=== PATIENT | male | born 1945 | race Caucasian/White ===

== ENCOUNTER 2020-03-26 17:26 | Inpatient (IN) | payer MEDICARE, OTHER ==
[~2020-03-26] VITALS: Ht 180.3 cm; Wt 121.6 kg
[~2020-03-26 17:26] MED LIST: AMLO10TA59 PO; ASPI81TA31 PO; ATOR80TA PO; CLON0.1T14 PO; DIGO125T PO; FURO-151 PO; Lisinopril PO; METO-358 PO; RIVA10TA PO
[2020-03-26] MEDS ORDERED: MAGN400O6 PO (17:51)
[2020-03-26] MEDS ORDERED: NA P133E RC (17:51)
[2020-03-26] MEDS ORDERED: SITA50TA PO (17:51)
[2020-03-26] MEDS ORDERED: OLAN2.5T3 PO (17:51)
[2020-03-26] MEDS ORDERED: RIFA550T PO (17:51)
[2020-03-26] MEDS ORDERED: CARV12.52 PO (17:51)
[2020-03-26] MEDS ORDERED: ACET-2154 PO (17:51)
[2020-03-26] MEDS ORDERED: BISA10SU12 RC (17:51)
[2020-03-26] MEDS ORDERED: FURO-152 PO (17:51)
[2020-03-26] MEDS ORDERED: LACT10SO3 PO (17:51)
[2020-03-26] MEDS ORDERED: SPIR25TA6 PO (17:51)
[2020-03-26] MEDS ORDERED: GLIP10TA11 PO (18:01)
[2020-03-26] MEDS ORDERED: ATOR80TA PO (18:01)
[2020-03-26] MEDS ORDERED: HYDROCORTISONE CREAM TP (18:01)
[2020-03-26] MEDS ORDERED: INSU100V39 SQ (18:01)
[2020-03-26] MEDS ORDERED: TRIAMCINOLONE TP (18:01)
[2020-03-26] MEDS ORDERED: DOXA2TAB2 PO (18:01)
[2020-03-26] MEDS ORDERED: VENL37.510 PO (18:01)
[2020-03-26] MEDS ORDERED: TRAZ-257 PO (18:01)
[2020-03-26] MEDS ORDERED: INSU100V7 SQ (18:01)
[2020-03-26] MEDS ORDERED: DILT240C88 PO (18:01)
[2020-03-26] MEDS ORDERED: GABA-532 PO (18:01)
[2020-03-26] MEDS ORDERED: ATOR20TA PO (18:01)
[2020-03-26 18:12] LABS: BASOPHILS # (AUTO) 0.1 K/uL (0.0-8.0); BASOPHILS % (AUTO) 1.2 % (0.0-2.0); EOSINOPHILS # (AUTO) 0.3 K/uL (0.0-0.7); EOSINOPHILS % (AUTO) 4.5 % (0.0-7.0); HEMATOCRIT 50.5 % (36.7-47.1); HEMOGLOBIN 17.3 g/dL (12.5-16.3); LYMPHOCYTES # (AUTO) 0.6 K/uL (20.0-40.0); LYMPHOCYTES % (AUTO) 10.8 % (20.5-51.5); MEAN CORPUSCULAR HEMOGLOBIN 31.8 uug (23.8-33.4); MEAN CORPUSCULAR HGB CONC 34 g/dL (32.5-36.3); MEAN CORPUSCULAR VOLUME 92.7 fL (73.0-96.2); MONOCYTES # (AUTO) 0.6 K/uL (2.0-10.0); MONOCYTES % (AUTO) 10.3 % (0.0-11.0); NEUTROPHILS # (AUTO) 4.2 K/uL (1.8-8.9); NEUTROPHILS % (AUTO) 73.2 % (38.5-71.5); PLATELET COUNT (AUTO) 136 K/uL (152-348); RED BLOOD CELL COUNT(AUTO) 5.45 MIL/uL (4.06-5.63); WHITE BLOOD COUNT (AUTO) 5.8 K/uL (3.6-10.2)
[2020-03-26] MEDS ORDERED: BLOO-1672 MC (18:17)
[2020-03-26] MEDS ORDERED: GLUC1KIT IM (18:17)
[2020-03-26] MEDS ORDERED: DEXT38GE12 PO (18:17)
[2020-03-26 18:27] LABS: ALANINE AMINOTRANSFERASE 102 U/L (16-63); ALKALINE PHOSPHATASE 131 U/L (50-136); ASPARTATE AMINOTRANSFERASE 42 U/L (15-37); BILIRUBIN,DIRECT 0.2 mg/dL (0.0-0.2); BILIRUBIN,TOTAL 0.5 mg/dL (0.2-1.0); CARBON DIOXIDE 30 mmol/L (21-32); CHLORIDE 100 mmol/L (98-107); CREATININE 1.7 mg/dL (0.6-1.3); GLUCOSE 171 mg/dL (74-106); POTASSIUM 4.8 mmol/L (3.5-5.1); UREA NITROGEN, BLOOD 30 mg/dL (7-18)
--- NOTE | 2020-03-26 18:28 | NUR ---
PT IS IN ROOM #2B UNDER DIRECT OBSERVATION OF KYLE ALCOCER. DR SINCLAIR EVALUATED THE PT. PT WAS MEDICALY CLEARED BY DR SINCLAIR. CRISIS CAR CONSTRUCTION SUPERINTENDENT UZMA WAS CALLED TO EVALUATE THE PT, WILLY IS 1 HOUR.
[2020-03-26 18:29] LABS: ACETAMINOPHEN < 2.0 ug/mL (10-30); ETHANOL < 3 MG/DL (0-0)
--- NOTE | 2020-03-26 19:05 | NUR ---
REPORT GIVEN TO DRAFTER CASTINGS KYLE DONALDSON.
[2020-03-26 19:20] LABS: *BILIRUBIN,URIN NEGATIVE (NEGATIVE); *BLOOD, URINE NEGATIVE (NEGATIVE); *CLARITY,URINE CLEAR (CLEAR); *COLOR,URINE YELLOW (YELLOW); *KETONES,URINE NEGATIVE (NEGATIVE); *UROBILINOGEN,URINE 0.2 E.U./dl (NORMAL); LEUKOCYTE ESTERASE ,URINE NEGATIVE (NEGATIVE); NITRITE, URINE NEGATIVE (NEGATIVE); UGLUCOSE NEGATIVE (NEGATIVE)
[2020-03-26 19:25] LABS: *AMPHETAMINE, URINE NEGATIVE (NEGATIVE); *CANNABINOID, URINE NEGATIVE (NEGATIVE); *COCCAINE, URINE NEGATIVE (NEGATIVE); *OPIATE, URINE NEGATIVE (NEGATIVE); *PHENCYCLIDINE SCREEN,URINE NEGATIVE (NEGATIVE)
--- NOTE | 2020-03-26 19:26 | NUR ---
UZMA FROM CRISIS TEAM NOTED IN PATIENT'S ROOM AT THIS TIME FOR ASSESSMENT
--- NOTE | 2020-03-26 19:56 | NUR ---
PATIENT PLACED ON 5150 HOLD FOR DANGER TO OTHERS BY UZMA FROM CRISIS, 139 B ROOM ARRANGED ON MHU
--- NOTE | 2020-03-26 21:25 | NUR ---
report given to Viktor WRIGHT of [facility]
--- NOTE | 2020-03-26 21:30 | NUR ---
Pt. admitted to MHU , under care of Dr. Serrano Belongs List completed and all belongings sent
[2020-03-26 21:45] VITALS: BP 129/84
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
[2020-03-26] MEDS ORDERED: MAG HYDROX/AL HYDROX/SIMETH 30 ML LIQUID UDC PO PRN (22:15)
[2020-03-26] MEDS ORDERED: MAGNESIUM HYDROXIDE 30 ML LIQUID UDC PO PRN (22:15)
[2020-03-26] MEDS ORDERED: ACETAMINOPHEN 325 MG TABLET PO PRN (22:15)
[2020-03-27] MEDS: TEMAZEPAM 7.5 MG CAPSULE PO PRN (00:49)
--- NOTE | 2020-03-27 06:21 | NUR ---
Patient slept well for about 6 hrs.Uses the walker to ambulates to bathroom .Voided well and BM x1.No episodes of combative and agitation through out the night.
[2020-03-27 07:30] VITALS: BP 122/80
--- NOTE | 2020-03-27 12:13 | NUR ---
Facility Contact: SW called [facility] and spoke to customer relations coordinator Tala who stated that the pt can return if he is stable at the time of discharge.
--- NOTE | 2020-03-27 12:30 | NUR ---
Firearms Report: Language [employer] completed and submitted a DOJ firearms report for 5150 grave disability and danger to others certification. A copy of report has been placed in patient chart.
[2020-03-27] MEDS ORDERED: HYDR453.3 TP (13:05)
[2020-03-27] MEDS ORDERED: TRIA80OI2 TP (13:05)
[2020-03-27] MEDS ORDERED: MAGNESIUM HYDROXIDE 30 ML LIQUID UDC PO PRN (14:30)
[2020-03-27] MEDS ORDERED: BISACODYL 10 MG SUPP.RECT RC PRN (14:30)
[2020-03-27] MEDS ORDERED: CLONIDINE HCL 0.1 MG TABLET PO PRN (14:30)
[2020-03-27] MEDS ORDERED: ACETAMINOPHEN 325 MG TABLET PO SCH (14:30)
[2020-03-27] MEDS ORDERED: DEXTROSE 50% 50 ML DISP.SYRIN IV PRN (14:45)
--- NOTE | 2020-03-27 14:49 | NUR ---
Initial Discharge Plan: Pt currently resides at [facility] located at [address], [place] [address]; . Per pt, he wants to return to his home. SW will work with the pt and the MD regarding appropriate discharge planning. SW will form a safe and proper discharge.
--- NOTE | 2020-03-27 14:49 | NUR ---
Family Contact: SW spoke to Trino ([phone]), pts girlfriends daughter, who stated that she usually communicates on behalf of her mother. She states that she wants the pt back at [facility] and SW stated that the pt will return if the facility accepts the pt at the time of discharge.
[2020-03-27 16:27] VITALS: BP 96/83
[2020-03-27] MEDS ORDERED: Medication Not On Formulary EA (Lactulose (Duphalac) 30 ML) PO SCH (17:00)
[2020-03-27] MEDS: BLOOD SUGAR DIAGNOSTIC 1 EACH STRIP VI SCH ×2 (17:20→20:46)
[2020-03-27] MEDS: CARVEDILOL 12.5 MG TABLET PO SCH (17:24)
[2020-03-27] MEDS: glipiZIDE 10 MG TABLET PO SCH (17:25)
[2020-03-27] MEDS: RIFAXIMIN 550 MG TABLET PO SCH (17:29)
[2020-03-27 20:00] VITALS: BP 98/61
[2020-03-27 20:32] VITALS: BP 119/67
[2020-03-27] MEDS: GABAPENTIN 300 MG CAPSULE PO SCH (20:37)
[2020-03-27] MEDS: LACTULOSE 20 G/30 ML LIQUID UDC PO SCH (20:37)
[2020-03-27] MEDS: DOXAZOSIN 2 MG TABLET PO SCH (20:37)
[2020-03-27] MEDS ORDERED: ATORVASTATIN 20 MG TABLET PO SCH (21:00)
[2020-03-27] MEDS ORDERED: GABAPENTIN 100 MG CAPSULE PO SCH (21:00)
[2020-03-27] MEDS: DIVALPROEX 125 MG TABLET.DR PO SCH (22:07)
[2020-03-28] MEDS: BLOOD SUGAR DIAGNOSTIC 1 EACH STRIP VI SCH ×4 (06:32→20:29)
[2020-03-28 07:30] VITALS: BP 142/96
[2020-03-28] MEDS: LACTULOSE 20 G/30 ML LIQUID UDC PO SCH ×2 (08:16→20:21)
[2020-03-28] MEDS: glipiZIDE 10 MG TABLET PO SCH ×2 (08:17→17:15)
[2020-03-28] MEDS: SPIRONOLACTONE 25 MG TABLET PO SCH (08:17)
[2020-03-28] MEDS: DILTIAZEM HCL CD 240 MG CAP.SR.24H PO SCH (08:18)
[2020-03-28] MEDS: RIFAXIMIN 550 MG TABLET PO SCH ×2 (08:18→17:15)
[2020-03-28] MEDS: CARVEDILOL 12.5 MG TABLET PO SCH ×2 (08:19→17:16)
[2020-03-28] MEDS: FUROSEMIDE 20 MG TABLET PO SCH (08:20)
[2020-03-28] MEDS: DIVALPROEX 125 MG TABLET.DR PO SCH ×2 (08:20→20:21)
[2020-03-28] MEDS: LINAGLIPTIN 5 MG TABLET PO SCH (08:20)
[2020-03-28 16:44] VITALS: BP 124/82
[2020-03-28 20:00] VITALS: BP 108/79
[2020-03-28] MEDS: GABAPENTIN 300 MG CAPSULE PO SCH (20:21)
[2020-03-28] MEDS: DOXAZOSIN 2 MG TABLET PO SCH (20:22)
[2020-03-29] MEDS: BLOOD SUGAR DIAGNOSTIC 1 EACH STRIP VI SCH ×4 (06:38→20:08)
--- NOTE | 2020-03-29 06:43 | NUR ---
GPS: Pt.slept 8.30 last night. B.S earlier was 126mg/dl. No increased agitation/aggressive behavior noted. Safety emphasized. Forgetful at times but re-directable. Will continue to monitor.
[2020-03-29] MEDS: glipiZIDE 10 MG TABLET PO SCH ×2 (08:38→17:40)
[2020-03-29] MEDS: DIVALPROEX 125 MG TABLET.DR PO SCH ×2 (08:38→20:08)
[2020-03-29] MEDS: SPIRONOLACTONE 25 MG TABLET PO SCH (08:39)
[2020-03-29] MEDS: RIFAXIMIN 550 MG TABLET PO SCH ×2 (08:39→17:40)
[2020-03-29] MEDS: DILTIAZEM HCL CD 240 MG CAP.SR.24H PO SCH (08:39)
[2020-03-29] MEDS: FUROSEMIDE 20 MG TABLET PO SCH (08:39)
[2020-03-29] MEDS: LINAGLIPTIN 5 MG TABLET PO SCH (08:40)
[2020-03-29] MEDS: LACTULOSE 20 G/30 ML LIQUID UDC PO SCH ×2 (08:40→20:08)
[2020-03-29] MEDS: CARVEDILOL 12.5 MG TABLET PO SCH ×2 (08:40→17:46)
[2020-03-29 10:17] VITALS: BP 107/54
[2020-03-29] MEDS: INSULIN REGULAR, HUMAN 300 UNIT/3 ML VIAL SQ PRN ×2 (11:56→17:43)
[2020-03-29 16:37] VITALS: BP 122/69
[2020-03-29] MEDS: GABAPENTIN 300 MG CAPSULE PO SCH (20:08)
[2020-03-29] MEDS: DOXAZOSIN 2 MG TABLET PO SCH (20:08)
[2020-03-29 20:14] VITALS: BP 101/51
[2020-03-29] MEDS: TEMAZEPAM 7.5 MG CAPSULE PO PRN (21:51)
[2020-03-30] MEDS: BLOOD SUGAR DIAGNOSTIC 1 EACH STRIP VI SCH ×4 (06:42→20:14)
[2020-03-30 07:30] VITALS: BP 109/65
[2020-03-30] MEDS: glipiZIDE 10 MG TABLET PO SCH ×2 (07:52→16:29)
[2020-03-30] MEDS: LINAGLIPTIN 5 MG TABLET PO SCH (08:25)
[2020-03-30] MEDS: DIVALPROEX 125 MG TABLET.DR PO SCH ×2 (08:25→20:14)
[2020-03-30] MEDS: SPIRONOLACTONE 25 MG TABLET PO SCH (08:25)
[2020-03-30] MEDS: SERTRALINE HCL 50 MG TABLET PO SCH (08:26)
[2020-03-30] MEDS: CARVEDILOL 12.5 MG TABLET PO SCH ×2 (08:26→17:31)
[2020-03-30] MEDS: RIFAXIMIN 550 MG TABLET PO SCH ×2 (08:26→16:30)
[2020-03-30] MEDS: LACTULOSE 20 G/30 ML LIQUID UDC PO SCH ×2 (08:27→20:14)
[2020-03-30] MEDS: DILTIAZEM HCL CD 240 MG CAP.SR.24H PO SCH (08:27)
[2020-03-30] MEDS: FUROSEMIDE 20 MG TABLET PO SCH (08:28)
[2020-03-30 16:00] VITALS: BP 137/90
--- NOTE | 2020-03-30 16:00 | NUR ---
Gps/Instructor Technical Training-Stayed in the activity room most of the time, wheel self around the unit, likes to interact , talks w/ one of the female peer, continue to monitor behavior.
[2020-03-30] MEDS: LORAZEPAM 1 MG TABLET PO PRN ×2 (16:30→23:56)
[2020-03-30] MEDS: INSULIN REGULAR, HUMAN 300 UNIT/3 ML VIAL SQ PRN (17:07)
[2020-03-30 19:30] VITALS: BP 138/82
[2020-03-30] MEDS: INSULIN REGULAR, HUMAN 300 UNITS/3 ML VIAL SQ PRN (20:12)
[2020-03-30] MEDS: GABAPENTIN 300 MG CAPSULE PO SCH (20:13)
[2020-03-30] MEDS: DOXAZOSIN 2 MG TABLET PO SCH (20:13)
[2020-03-30] MEDS: TEMAZEPAM 7.5 MG CAPSULE PO PRN (23:55)
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
[2020-03-31] MEDS: glipiZIDE 10 MG TABLET PO SCH ×2 (06:30→16:07)
[2020-03-31] MEDS: BLOOD SUGAR DIAGNOSTIC 1 EACH STRIP VI SCH ×4 (06:35→20:54)
[2020-03-31] MEDS: INSULIN REGULAR, HUMAN 300 UNIT/3 ML VIAL SQ PRN ×3 (07:47→16:44)
[2020-03-31 08:02] VITALS: BP 123/80
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
[2020-03-31] MEDS: DIVALPROEX 125 MG TABLET.DR PO SCH ×2 (08:49→20:45)
[2020-03-31] MEDS: RIFAXIMIN 550 MG TABLET PO SCH ×2 (08:49→16:07)
[2020-03-31] MEDS: FUROSEMIDE 20 MG TABLET PO SCH (08:49)
[2020-03-31] MEDS: CARVEDILOL 12.5 MG TABLET PO SCH ×2 (08:50→17:16)
[2020-03-31] MEDS: LINAGLIPTIN 5 MG TABLET PO SCH (08:50)
[2020-03-31] MEDS: SERTRALINE HCL 50 MG TABLET PO SCH ×2 (08:51→16:07)
[2020-03-31] MEDS: SPIRONOLACTONE 25 MG TABLET PO SCH (08:51)
[2020-03-31] MEDS: LACTULOSE 20 G/30 ML LIQUID UDC PO SCH ×2 (08:51→20:45)
[2020-03-31] MEDS: DILTIAZEM HCL CD 240 MG CAP.SR.24H PO SCH (08:51)
--- NOTE | 2020-03-31 11:41 | NUR ---
Patient has tried multiple time to get out of bed on his own. Very unsteady. Patient minimizing his inability to ambulate safely on his own. Continuing to monitor closely for safety and constantly reminding patient to wait for assistance.
[2020-03-31 16:06] VITALS: BP 104/75
[2020-03-31 20:12] VITALS: BP 113/55
[2020-03-31] MEDS: DOXAZOSIN 2 MG TABLET PO SCH (20:45)
[2020-03-31] MEDS: GABAPENTIN 300 MG CAPSULE PO SCH (20:45)
[2020-04-01] MEDS: BLOOD SUGAR DIAGNOSTIC 1 EACH STRIP VI SCH ×4 (06:34→19:58)
[2020-04-01 07:55] VITALS: BP 114/74
[2020-04-01] MEDS: LACTULOSE 20 G/30 ML LIQUID UDC PO SCH ×2 (08:26→20:03)
[2020-04-01] MEDS: SERTRALINE HCL 50 MG TABLET PO SCH ×2 (08:26→17:20)
[2020-04-01] MEDS: FUROSEMIDE 20 MG TABLET PO SCH (08:26)
[2020-04-01] MEDS: LINAGLIPTIN 5 MG TABLET PO SCH (08:26)
[2020-04-01] MEDS: SPIRONOLACTONE 25 MG TABLET PO SCH (08:26)
[2020-04-01] MEDS: glipiZIDE 10 MG TABLET PO SCH ×2 (08:26→17:20)
[2020-04-01] MEDS: DIVALPROEX 125 MG TABLET.DR PO SCH ×2 (08:26→20:03)
[2020-04-01] MEDS: RIFAXIMIN 550 MG TABLET PO SCH ×2 (08:26→17:20)
[2020-04-01] MEDS: CARVEDILOL 12.5 MG TABLET PO SCH ×2 (08:27→17:24)
[2020-04-01] MEDS: DILTIAZEM HCL CD 240 MG CAP.SR.24H PO SCH (08:27)
[2020-04-01 16:12] VITALS: BP 118/80
[2020-04-01] MEDS: INSULIN REGULAR, HUMAN 300 UNITS/3 ML VIAL SQ PRN (20:01)
[2020-04-01] MEDS: DOXAZOSIN 2 MG TABLET PO SCH (20:03)
[2020-04-01] MEDS: GABAPENTIN 300 MG CAPSULE PO SCH (20:04)
[2020-04-01 20:22] VITALS: BP 132/76
[2020-04-01] MEDS: TEMAZEPAM 7.5 MG CAPSULE PO PRN (20:55)
--- NOTE | 2020-04-02 05:36 | NUR ---
Received patient in the day room last night, talking with peers. Some hypersexual overtones were noted and property underwriter had to set limits. Patient appears oriented, but is very forgetful and gets agitated easily. Lawn And Tree Service Spray Supervisor found patient trying to get up out of bed during the night without help despite frequent reminders to wait for assistance. Patient has a very unsteady gait but has no insight to his limitations. VS are stable and patient is medication compliant. Frequent rounding, reorientation and redirection provided. Continuing to monitor for safety, agitation and behavioral escalation. Patient had a shower this am and total sleep was 6.30 hours..
[2020-04-02] MEDS: BLOOD SUGAR DIAGNOSTIC 1 EACH STRIP VI SCH ×5 (06:33→20:41)
[2020-04-02 07:30] VITALS: BP 123/85
[2020-04-02] MEDS: FUROSEMIDE 20 MG TABLET PO SCH (08:23)
[2020-04-02] MEDS: LACTULOSE 20 G/30 ML LIQUID UDC PO SCH ×2 (08:23→20:34)
[2020-04-02] MEDS: RIFAXIMIN 550 MG TABLET PO SCH ×2 (08:23→17:14)
[2020-04-02] MEDS: SPIRONOLACTONE 25 MG TABLET PO SCH (08:23)
[2020-04-02] MEDS: SERTRALINE HCL 100 MG TABLET PO SCH (08:23)
[2020-04-02] MEDS: DIVALPROEX 250 MG TABLET.DR PO SCH ×3 (08:23→17:14)
[2020-04-02] MEDS: glipiZIDE 10 MG TABLET PO SCH (08:23)
[2020-04-02] MEDS: LINAGLIPTIN 5 MG TABLET PO SCH (08:23)
[2020-04-02] MEDS: CARVEDILOL 12.5 MG TABLET PO SCH ×2 (08:24→17:14)
[2020-04-02] MEDS: DILTIAZEM HCL CD 240 MG CAP.SR.24H PO SCH (08:25)
--- NOTE | 2020-04-02 11:09 | NUR ---
ELISSA PC Hearing: Patient had probable cause hearing today and it was upheld for Danger to others and grave disability.
--- NOTE | 2020-04-02 12:18 | NUR ---
GPS: Nursing Notes: Low FBS: Patient responding to verbals commands, FBS=66, orange juice and his lunch tray given to the patient, asymptomatic, continue to monitor for safety, FBS would be repeat after he finishes eating his lunch, continue with treatment plan.
--- NOTE | 2020-04-02 13:08 | NUR ---
GPS: Nursing Notes: Recheck of FBS: Patient continue to be responding to verbal commands, recheck of FBS = 103, compliant with his diabetic diet and medications, continue to monitor FBS, continue with treatment plan.
[2020-04-02 15:18] VITALS: BP 120/73
[2020-04-02 20:08] VITALS: BP 124/79
[2020-04-02] MEDS: GABAPENTIN 300 MG CAPSULE PO SCH (20:34)
[2020-04-02] MEDS: DOXAZOSIN 2 MG TABLET PO SCH (20:34)
[2020-04-03 06:10] LABS: BASOPHILS # (AUTO) 0.1 K/uL (0.0-8.0); BASOPHILS % (AUTO) 1.5 % (0.0-2.0); EOSINOPHILS # (AUTO) 0.3 K/uL (0.0-0.7); EOSINOPHILS % (AUTO) 5.9 % (0.0-7.0); HEMATOCRIT 47.6 % (36.7-47.1); HEMOGLOBIN 16.1 g/dL (12.5-16.3); LYMPHOCYTES # (AUTO) 0.7 K/uL (20.0-40.0); LYMPHOCYTES % (AUTO) 14.4 % (20.5-51.5); MEAN CORPUSCULAR HEMOGLOBIN 31.4 uug (23.8-33.4); MEAN CORPUSCULAR HGB CONC 34 g/dL (32.5-36.3); MEAN CORPUSCULAR VOLUME 93.2 fL (73.0-96.2); MONOCYTES # (AUTO) 0.5 K/uL (2.0-10.0); MONOCYTES % (AUTO) 10.4 % (0.0-11.0); NEUTROPHILS # (AUTO) 3.1 K/uL (1.8-8.9); NEUTROPHILS % (AUTO) 67.8 % (38.5-71.5); PLATELET COUNT (AUTO) 118 K/uL (152-348); RED BLOOD CELL COUNT(AUTO) 5.11 MIL/uL (4.06-5.63); WHITE BLOOD COUNT (AUTO) 4.6 K/uL (3.6-10.2)
[2020-04-03 06:22] LABS: ALANINE AMINOTRANSFERASE 61 U/L (16-63); ALKALINE PHOSPHATASE 103 U/L (50-136); ASPARTATE AMINOTRANSFERASE 38 U/L (15-37); BILIRUBIN,TOTAL 0.9 mg/dL (0.2-1.0); CARBON DIOXIDE 29 mmol/L (21-32); CHLORIDE 103 mmol/L (98-107); CREATININE 1.5 mg/dL (0.6-1.3); GLUCOSE 111 mg/dL (74-106); PHOSPHOROUS 3.2 mg/dL (2.5-4.9); POTASSIUM 4.2 mmol/L (3.5-5.1); TOTAL PROTEIN, SERUM 7.1 g/dL (6.4-8.2); UREA NITROGEN, BLOOD 30 mg/dL (7-18)
[2020-04-03] MEDS: BLOOD SUGAR DIAGNOSTIC 1 EACH STRIP VI SCH ×4 (06:46→20:29)
[2020-04-03 07:30] VITALS: BP 122/77
[2020-04-03] MEDS ORDERED: glipiZIDE 10 MG TABLET PO SCH (07:30)
[2020-04-03] MEDS: LINAGLIPTIN 5 MG TABLET PO SCH (08:47)
[2020-04-03] MEDS: DIVALPROEX 250 MG TABLET.DR PO SCH ×3 (08:47→17:18)
[2020-04-03] MEDS: LACTULOSE 20 G/30 ML LIQUID UDC PO SCH ×2 (08:47→20:24)
[2020-04-03] MEDS: FUROSEMIDE 20 MG TABLET PO SCH (08:47)
[2020-04-03] MEDS: SERTRALINE HCL 100 MG TABLET PO SCH (08:48)
[2020-04-03] MEDS: SPIRONOLACTONE 25 MG TABLET PO SCH (08:48)
[2020-04-03] MEDS: RIFAXIMIN 550 MG TABLET PO SCH ×2 (08:49→17:18)
[2020-04-03] MEDS: CARVEDILOL 12.5 MG TABLET PO SCH ×2 (08:49→17:22)
[2020-04-03] MEDS: glipiZIDE 5 MG TABLET PO SCH ×2 (08:50→17:21)
[2020-04-03] MEDS: DILTIAZEM HCL CD 240 MG CAP.SR.24H PO SCH (08:50)
[2020-04-03 15:50] VITALS: BP 118/77
[2020-04-03] MEDS: GABAPENTIN 300 MG CAPSULE PO SCH (20:23)
[2020-04-03] MEDS: DOXAZOSIN 2 MG TABLET PO SCH (20:33)
[2020-04-03 21:10] VITALS: BP 101/66
--- NOTE | 2020-04-03 21:13 | NUR ---
PATIENT RECEIVED IN BED AWAKE. PATIENT COMPLAINT WITH MEDICATION. NO AGGRESSIVE OR COMBATIVE BEHAVIOR. FALL PRECAUTIONS RENDERED. SAFE ENVIRONMENT PROVIDED, FREQUENT ROUNDING, AND CLUTTER FREE ENVIRONMENT. BED IN LOWEST POSITION, BED LOCKED AND BED ALAR ON WHILE IN BED. PATIENT HAS WHEEL CHAIR CLOSE BY WITH WHEELS LOCKED.ACCUCHECK RENDERED 91 MG/DL NO S/S OF HYPO/HYPERGLYCEMIA.
[2020-04-04] MEDS: BLOOD SUGAR DIAGNOSTIC 1 EACH STRIP VI SCH ×4 (06:30→21:04)
[2020-04-04 07:30] VITALS: BP 127/77
[2020-04-04 07:34] LABS: BASOPHILS # (AUTO) 0.1 K/uL (0.0-8.0); BASOPHILS % (AUTO) 1.5 % (0.0-2.0); EOSINOPHILS # (AUTO) 0.2 K/uL (0.0-0.7); EOSINOPHILS % (AUTO) 6.1 % (0.0-7.0); HEMATOCRIT 46.5 % (36.7-47.1); HEMOGLOBIN 15.9 g/dL (12.5-16.3); LYMPHOCYTES # (AUTO) 0.6 K/uL (20.0-40.0); LYMPHOCYTES % (AUTO) 15.2 % (20.5-51.5); MEAN CORPUSCULAR HEMOGLOBIN 31.8 uug (23.8-33.4); MEAN CORPUSCULAR HGB CONC 34 g/dL (32.5-36.3); MEAN CORPUSCULAR VOLUME 93.4 fL (73.0-96.2); MONOCYTES # (AUTO) 0.4 K/uL (2.0-10.0); MONOCYTES % (AUTO) 11.1 % (0.0-11.0); NEUTROPHILS # (AUTO) 2.4 K/uL (1.8-8.9); NEUTROPHILS % (AUTO) 66.1 % (38.5-71.5); PLATELET COUNT (AUTO) 101 K/uL (152-348); RED BLOOD CELL COUNT(AUTO) 4.98 MIL/uL (4.06-5.63); WHITE BLOOD COUNT (AUTO) 3.7 K/uL (3.6-10.2)
[2020-04-04 07:56] LABS: CREATININE 1.3 mg/dL (0.6-1.3); PHOSPHOROUS 3.1 mg/dL (2.5-4.9)
[2020-04-04] MEDS: FUROSEMIDE 20 MG TABLET PO SCH (08:22)
[2020-04-04] MEDS: LINAGLIPTIN 5 MG TABLET PO SCH (08:22)
[2020-04-04] MEDS: SPIRONOLACTONE 25 MG TABLET PO SCH (08:22)
[2020-04-04] MEDS: DILTIAZEM HCL CD 240 MG CAP.SR.24H PO SCH (08:22)
[2020-04-04] MEDS: DIVALPROEX 250 MG TABLET.DR PO SCH ×3 (08:22→15:54)
[2020-04-04] MEDS: LACTULOSE 20 G/30 ML LIQUID UDC PO SCH ×2 (08:22→21:03)
[2020-04-04] MEDS: CARVEDILOL 12.5 MG TABLET PO SCH ×2 (08:22→17:00)
[2020-04-04] MEDS: glipiZIDE 5 MG TABLET PO SCH ×2 (08:22→15:53)
[2020-04-04] MEDS: SERTRALINE HCL 100 MG TABLET PO SCH (08:26)
[2020-04-04] MEDS: RIFAXIMIN 550 MG TABLET PO SCH ×2 (08:26→16:33)
[2020-04-04] MEDS: INSULIN REGULAR, HUMAN 300 UNIT/3 ML VIAL SQ PRN (11:10)
--- NOTE | 2020-04-04 11:36 | NUR ---
Facility Contact: SW called [facility] and spoke to residential coordinator Tala and stated that patient will be ready for discharge soon. Patient's psychiatrist at facility is Dr. Moralez and Switchman Supervisor Dr. Escalona.
[2020-04-04 16:45] VITALS: BP 116/52
[2020-04-04 20:10] VITALS: BP 122/72
[2020-04-04] MEDS: GABAPENTIN 300 MG CAPSULE PO SCH (21:03)
[2020-04-04] MEDS: DOXAZOSIN 2 MG TABLET PO SCH (21:04)
[2020-04-04] MEDS: DIVALPROEX 500 MG TABLET.DR PO SCH (21:04)
[2020-04-04] MEDS: INSULIN REGULAR, HUMAN 300 UNITS/3 ML VIAL SQ PRN (21:12)
--- NOTE | 2020-04-04 21:30 | NUR ---
Received pt resting in bed. No acute distress noted. Denies SI. Pt in wheelchair, able to wheel himself. Pt compliant with care. Had snacks in the activity area. Safely back in bed. Accucheck 97, no insulin coverage as per sliding scale. Safety measures maintained. Will continue to monitor.
[2020-04-05] MEDS: BLOOD SUGAR DIAGNOSTIC 1 EACH STRIP VI SCH ×4 (06:48→20:38)
[2020-04-05 07:30] VITALS: BP 131/92
[2020-04-05] MEDS: SERTRALINE HCL 100 MG TABLET PO SCH (08:33)
[2020-04-05] MEDS: glipiZIDE 5 MG TABLET PO SCH ×2 (08:33→16:41)
[2020-04-05] MEDS: SPIRONOLACTONE 25 MG TABLET PO SCH (08:33)
[2020-04-05] MEDS: LINAGLIPTIN 5 MG TABLET PO SCH (08:33)
[2020-04-05] MEDS: DIVALPROEX 250 MG TABLET.DR PO SCH ×2 (08:33→12:11)
[2020-04-05] MEDS: LACTULOSE 20 G/30 ML LIQUID UDC PO SCH ×2 (08:34→20:35)
[2020-04-05] MEDS: DILTIAZEM HCL CD 240 MG CAP.SR.24H PO SCH (08:34)
[2020-04-05] MEDS: CARVEDILOL 12.5 MG TABLET PO SCH ×2 (08:34→18:00)
[2020-04-05] MEDS: FUROSEMIDE 20 MG TABLET PO SCH (08:34)
[2020-04-05] MEDS: RIFAXIMIN 550 MG TABLET PO SCH ×2 (08:36→16:41)
--- NOTE | 2020-04-05 12:40 | NUR ---
Gps/Upholsterer Inside- Emotionally labile , tends to be argumentative when being redirected. . Continue to monitor behavior.
--- NOTE | 2020-04-05 15:27 | NUR ---
Individual Counseling: cloth worker met with patient for brief counseling to help address patients presenting problem aggressive behavior. Patient presents with flat affect and withdrawn mood. Patient is able to have a meaningful conversation with this director of social services. Patient is calm and cooperative and has been joining group. Patient shares that he enjoys talking with his peers. SW will continue to be available for the patient and provide ongoing support.
[2020-04-05 15:55] VITALS: BP 95/63
[2020-04-05 20:13] VITALS: BP 106/71
[2020-04-05] MEDS: DOXAZOSIN 2 MG TABLET PO SCH (20:36)
[2020-04-05] MEDS: GABAPENTIN 300 MG CAPSULE PO SCH (20:36)
[2020-04-05] MEDS: DIVALPROEX 500 MG TABLET.DR PO SCH (20:36)
[2020-04-05] MEDS: INSULIN REGULAR, HUMAN 300 UNITS/3 ML VIAL SQ PRN (20:47)
[2020-04-05] MEDS: diphenhydrAMINE 25 MG CAP PO PRN (21:39)
--- NOTE | 2020-04-05 22:30 | NUR ---
Received patient in his room in bed. he is noted awake A/O x 1. he is noted calm and pleasant upon approached. he is able to verbalized feelings. No aggressive/combative bx is noted at this time. he is able to verbally CFS. Patient able to comply with medication regiment diet and plan of care. V/S stable. Patient C/O itching all over his body with a mild rash. Abram Stewart N.P was notify and a new order obtained to give Benadryl 25mg PO Q8HRS PRN for itchy skin. order is noted and carried out. Dr. Serrano, who was in the unit, was also notify of patient's itchy skin and mild rash. Wound care consul was ordered. Patient is reassured for his safety. safety and fall precaution in place. will continue to monitor.
--- NOTE | 2020-04-05 23:30 | NUR ---
patient reported relief of itchiness from benadryl. will continue to monitor.
[2020-04-06] MEDS: BLOOD SUGAR DIAGNOSTIC 1 EACH STRIP VI SCH ×4 (07:01→20:59)
--- NOTE | 2020-04-06 07:02 | NUR ---
PATIENT SLEPT FOR APPROX. 5.45 HRS THROUGH THE NIGHT. no aggressive bx noted during the shift. will continue to monitor.
[2020-04-06 07:30] VITALS: BP 111/73
[2020-04-06] MEDS: SERTRALINE HCL 100 MG TABLET PO SCH (08:42)
[2020-04-06] MEDS: FUROSEMIDE 20 MG TABLET PO SCH (08:42)
[2020-04-06] MEDS: LACTULOSE 20 G/30 ML LIQUID UDC PO SCH ×2 (08:42→20:59)
[2020-04-06] MEDS: RIFAXIMIN 550 MG TABLET PO SCH ×2 (08:43→16:05)
[2020-04-06] MEDS: SPIRONOLACTONE 25 MG TABLET PO SCH (08:43)
[2020-04-06] MEDS: DILTIAZEM HCL CD 240 MG CAP.SR.24H PO SCH (08:43)
[2020-04-06] MEDS: CARVEDILOL 12.5 MG TABLET PO SCH ×2 (08:43→17:13)
[2020-04-06] MEDS: DIVALPROEX 250 MG TABLET.DR PO SCH ×2 (08:44→12:39)
[2020-04-06] MEDS: glipiZIDE 5 MG TABLET PO SCH ×2 (08:44→16:05)
[2020-04-06] MEDS: LINAGLIPTIN 5 MG TABLET PO SCH (08:44)
[2020-04-06 14:57] VITALS: BP 122/74
[2020-04-06] MEDS: diphenhydrAMINE 25 MG CAP PO PRN (18:38)
[2020-04-06] MEDS: LORAZEPAM 1 MG TABLET PO PRN (19:38)
[2020-04-06 20:09] VITALS: BP 118/72
[2020-04-06] MEDS: DIVALPROEX 500 MG TABLET.DR PO SCH (20:59)
[2020-04-06] MEDS: TEMAZEPAM 7.5 MG CAPSULE PO PRN (21:00)
[2020-04-06] MEDS: DOXAZOSIN 2 MG TABLET PO SCH (21:00)
[2020-04-06] MEDS: GABAPENTIN 300 MG CAPSULE PO SCH (21:00)
[2020-04-07] MEDS: diphenhydrAMINE 25 MG CAP PO PRN ×2 (05:25→20:22)
[2020-04-07] MEDS: BLOOD SUGAR DIAGNOSTIC 1 EACH STRIP VI SCH ×4 (06:56→20:32)
--- NOTE | 2020-04-07 06:58 | NUR ---
Received Pt sleeping in bed, unwilling to wake up and engage with this resume writer. Pt stated, "come back at 10 o clock with my medications" then turned around, put the covers over his head and went back to sleep. Pt was approached at 2130 with his HS meds. and he was irritable and angry, refused HS Accu check and Lactulose. Pt c/o itching. Benadryl given with moderate effect. Pt is hypersexual and inappropriate toward females. Requires firm limits and frequent redirection. Denies pain, VS stable. AM BS 82.
[2020-04-07 07:30] VITALS: BP 116/77
[2020-04-07 07:47] LABS: BASOPHILS # (AUTO) 0.1 K/uL (0.0-8.0); BASOPHILS % (AUTO) 2.2 % (0.0-2.0); EOSINOPHILS # (AUTO) 0.2 K/uL (0.0-0.7); EOSINOPHILS % (AUTO) 5.7 % (0.0-7.0); HEMATOCRIT 46.8 % (36.7-47.1); HEMOGLOBIN 15.6 g/dL (12.5-16.3); LYMPHOCYTES # (AUTO) 0.4 K/uL (20.0-40.0); MEAN CORPUSCULAR HEMOGLOBIN 31.2 uug (23.8-33.4); MEAN CORPUSCULAR HGB CONC 33 g/dL (32.5-36.3); MEAN CORPUSCULAR VOLUME 93.8 fL (73.0-96.2); MONOCYTES # (AUTO) 0.5 K/uL (2.0-10.0); MONOCYTES % (AUTO) 13.3 % (0.0-11.0); NEUTROPHILS # (AUTO) 2.4 K/uL (1.8-8.9); NEUTROPHILS % (AUTO) 66.8 % (38.5-71.5); PLATELET COUNT (AUTO) 102 K/uL (152-348); RED BLOOD CELL COUNT(AUTO) 4.99 MIL/uL (4.06-5.63); WHITE BLOOD COUNT (AUTO) 3.6 K/uL (3.6-10.2)
[2020-04-07 08:04] LABS: CARBON DIOXIDE 29 mmol/L (21-32); CHLORIDE 103 mmol/L (98-107); CREATININE 1.3 mg/dL (0.6-1.3); GLUCOSE 95 mg/dL (74-106); POTASSIUM 4.1 mmol/L (3.5-5.1); UREA NITROGEN, BLOOD 28 mg/dL (7-18)
[2020-04-07] MEDS: DIVALPROEX 250 MG TABLET.DR PO SCH ×2 (08:05→13:14)
[2020-04-07] MEDS: CARVEDILOL 12.5 MG TABLET PO SCH ×2 (08:06→17:02)
[2020-04-07] MEDS: glipiZIDE 5 MG TABLET PO SCH ×2 (08:06→16:12)
[2020-04-07] MEDS: LACTULOSE 20 G/30 ML LIQUID UDC PO SCH ×2 (08:06→20:23)
[2020-04-07] MEDS: LINAGLIPTIN 5 MG TABLET PO SCH (08:06)
[2020-04-07] MEDS: RIFAXIMIN 550 MG TABLET PO SCH ×2 (08:06→16:22)
[2020-04-07] MEDS: DILTIAZEM HCL CD 240 MG CAP.SR.24H PO SCH (08:06)
[2020-04-07] MEDS: FUROSEMIDE 20 MG TABLET PO SCH (08:06)
[2020-04-07] MEDS: SPIRONOLACTONE 25 MG TABLET PO SCH (08:08)
[2020-04-07] MEDS: SERTRALINE HCL 100 MG TABLET PO SCH (08:08)
[2020-04-07] MEDS: INSULIN REGULAR, HUMAN 300 UNIT/3 ML VIAL SQ PRN (13:12)
[2020-04-07] MEDS: FAMOTIDINE 20 MG TABLET PO SCH (15:23)
[2020-04-07] MEDS: predniSONE 20 MG TABLET PO SCH (15:23)
[2020-04-07 15:25] VITALS: BP 143/88
[2020-04-07 20:02] VITALS: BP 147/76
[2020-04-07] MEDS: GABAPENTIN 300 MG CAPSULE PO SCH (20:22)
[2020-04-07] MEDS: LORAZEPAM 1 MG TABLET PO PRN (20:22)
[2020-04-07] MEDS: DIVALPROEX 500 MG TABLET.DR PO SCH (20:22)
[2020-04-07] MEDS: DOXAZOSIN 2 MG TABLET PO SCH (20:23)
[2020-04-07] MEDS: TEMAZEPAM 7.5 MG CAPSULE PO PRN (22:35)
[2020-04-08] MEDS: BLOOD SUGAR DIAGNOSTIC 1 EACH STRIP VI SCH ×2 (06:54→11:58)
[2020-04-08 07:30] VITALS: BP 115/64
[2020-04-08] MEDS: LINAGLIPTIN 5 MG TABLET PO SCH (08:22)
[2020-04-08] MEDS: FAMOTIDINE 20 MG TABLET PO SCH (08:22)
[2020-04-08] MEDS: SPIRONOLACTONE 25 MG TABLET PO SCH (08:22)
[2020-04-08] MEDS: SERTRALINE HCL 100 MG TABLET PO SCH (08:22)
[2020-04-08] MEDS: FUROSEMIDE 20 MG TABLET PO SCH (08:22)
[2020-04-08] MEDS: glipiZIDE 5 MG TABLET PO SCH (08:22)
[2020-04-08] MEDS: DIVALPROEX 250 MG TABLET.DR PO SCH ×2 (08:22→12:14)
[2020-04-08] MEDS: DILTIAZEM HCL CD 240 MG CAP.SR.24H PO SCH (08:23)
[2020-04-08] MEDS: LACTULOSE 20 G/30 ML LIQUID UDC PO SCH (08:23)
[2020-04-08] MEDS: CARVEDILOL 12.5 MG TABLET PO SCH (08:23)
[2020-04-08] MEDS: RIFAXIMIN 550 MG TABLET PO SCH (08:24)
[2020-04-08] MEDS: predniSONE 20 MG TABLET PO SCH (08:25)
--- NOTE | 2020-04-08 08:47 | NUR ---
ELISSA Discharge Note: Patient will be discharged back to [facility] [address], [place] [address] ([phone]). Patient will be provided ambulance transportation at 11:30AM. ELISSA spoke with Tala assistant director of admissions at the facility who confirmed patients arrival today. Patient is alert and oriented x4 and is aware and agreeable with discharge plans. Patient is unable to provide a viable plan for self-care but is willing to accept care provided for him at the facility. Patient denies suicidal or homicidal ideation. Patient will be following up with his Psychiatrist Dr. Moralez and Flight Attendant Inflight Services Dr. Bearden at the facility.
[2020-04-08] MEDS: INSULIN REGULAR, HUMAN 300 UNIT/3 ML VIAL SQ PRN (12:16)
[2020-04-08 16:00] VITALS: BP 141/79
--- NOTE | 2020-04-08 16:55 | NUR ---
DISCHARGE NOTE: Patient discharged off the unit in stable condition without adverse reaction accompanied by RN. Patient is being transported to [facility] via nonemergency ambulance. Patient's belongings and valuables inventoried with patient and returned. Patient provided with education about discharge medications, follow up with psychiatrist, and discharge instructions. Patient able to verbalize understanding. Upon discharge, patient denies suicidal and homicidal ideation. Patient is able to communicate needs appropriately.
== END 2020-04-08 16:45 | DRG 885 ==
LOC: ER 17:26 → GPS 20:30
PROVIDERS: ADMIT Psychiatry & Neurology Psychiatry; ATTEND Nurse Practitioner Acute Care
DX: F39 Unspecified mood [affective] disorder (principal); N18.9 Chronic kidney disease, unspecified; N17.0 Acute kidney failure with tubular necrosis; E11.65 Type 2 diabetes mellitus with hyperglycemia; I48.20 Chronic atrial fibrillation, unspecified; I48.92 Unspecified atrial flutter; I13.0 Hypertensive heart and chronic kidney disease with heart failure and stage 1 through stage 4 chronic kidney disease, or unspecified chronic kidney disease; I50.32 Chronic diastolic (congestive) heart failure; N25.81 Secondary hyperparathyroidism of renal origin; F29 Unspecified psychosis not due to a substance or known physiological condition; E11.22 Type 2 diabetes mellitus with diabetic chronic kidney disease; E11.42 Type 2 diabetes mellitus with diabetic polyneuropathy; E78.5 Hyperlipidemia, unspecified; K21.9 Gastro-esophageal reflux disease without esophagitis; J45.909 Unspecified asthma, uncomplicated; Z79.4 Long term (current) use of insulin; Z79.01 Long term (current) use of anticoagulants; Z59.0 Homelessness; Z87.891 Personal history of nicotine dependence; Z20.822 Contact with and (suspected) exposure to COVID-19; N40.0 Benign prostatic hyperplasia without lower urinary tract symptoms; K74.60 Unspecified cirrhosis of liver; Z73.6 Limitation of activities due to disability; L30.9 Dermatitis, unspecified; F03.90 Unspecified dementia, unspecified severity, without behavioral disturbance, psychotic disturbance, mood disturbance, and anxiety; Z85.05 Personal history of malignant neoplasm of liver; I25.10 Atherosclerotic heart disease of native coronary artery without angina pectoris; Z79.84 Long term (current) use of oral hypoglycemic drugs
CPT/HCPCS: 36415; 71045; 80164; 83735; 84100; 85025; 93005; 93307; A4663; G0480; J1815; J3490; J7512; Q0163; U0003

== ENCOUNTER 2021-04-28 13:37 | Inpatient (IN) | payer MEDICARE, OTHER ==
[~2021-04-28] VITALS: Ht 177.8 cm; Wt 130.2 kg
[~2021-04-28 13:37] MED LIST changes: +ACET-2154 PO; -AMLO10TA59 PO; -ASPI81TA31 PO; +ATOR20TA PO; -ATOR80TA PO; +BISA10SU12 RC; +BLOO-1672 MC; +CARV12.52 PO; +DEXT38GE12 PO; -DIGO125T PO; +DILT240C88 PO; +DOXA2TAB2 PO; -FURO-151 PO; +FURO-152 PO; +GABA-532 PO; +GLIP10TA11 PO; +GLUC1KIT IM; +HYDR453.3 TP; +INSU100V39 SQ; +INSU100V7 SQ; +LACT10SO3 PO; -Lisinopril PO; +MAGN400O6 PO; -METO-358 PO; +NA P133E RC; +RIFA550T PO; -RIVA10TA PO; +SITA50TA PO; +SPIR25TA6 PO; +TRIA80OI2 TP
--- NOTE | 2021-04-28 14:10 | NUR ---
Dr Figueroa at the bedside for MSE.
--- NOTE | 2021-04-28 14:52 | NUR ---
Patient is resting comfortably in bed with eyes closed, NAD noted. 1 to 1 application security engineer in the room.
[2021-04-28 14:57] LABS: CARBON DIOXIDE 32 mmol/L (21-32); CHLORIDE 100 mmol/L (98-107); CREATININE 1.4 mg/dL (0.6-1.3); GLUCOSE 158 mg/dL (74-106); POTASSIUM 4.1 mmol/L (3.5-5.1); UREA NITROGEN, BLOOD 25 mg/dL (7-18)
[2021-04-28 15:01] LABS: HEMATOCRIT 50.1 % (36.7-47.1); MEAN CORPUSCULAR HEMOGLOBIN 30.7 uug (23.8-33.4); MEAN CORPUSCULAR VOLUME 92.3 fL (73.0-96.2); PLATELET COUNT (AUTO) 126 K/uL (152-348)
[2021-04-28 15:06] LABS: ALANINE AMINOTRANSFERASE 53 U/L (16-63); ALKALINE PHOSPHATASE 81 U/L (50-136); ASPARTATE AMINOTRANSFERASE 23 U/L (15-37); BILIRUBIN,DIRECT 0.2 mg/dL (0.0-0.2); BILIRUBIN,TOTAL 0.5 mg/dL (0.2-1.0); TOTAL PROTEIN, SERUM 7.5 g/dL (6.4-8.2)
--- NOTE | 2021-04-28 15:10 | NUR ---
placed condom cath for urine collection. Urine sent to LAB.
[2021-04-28] MEDS ORDERED: ONDA4TAB5 PO (15:14)
[2021-04-28] MEDS ORDERED: OLAN5TAB70 PO (15:14)
[2021-04-28] MEDS ORDERED: TRAZ-182 PO (15:14)
[2021-04-28] MEDS ORDERED: VENL75CA62 PO (15:14)
[2021-04-28] MEDS ORDERED: INSU100C SQ (15:14)
[2021-04-28] MEDS ORDERED: ACET-3117 PO (15:14)
[2021-04-28] MEDS ORDERED: SERT100T PO (15:14)
[2021-04-28] MEDS ORDERED: DIVA-78 PO ×2 (15:14)
[2021-04-28 15:26] LABS: ACETAMINOPHEN < 2.0 ug/mL (10-30); ETHANOL < 3 MG/DL (0-0); THYROID STIMULATING HORMONE 5.588 mIU/mL (0.358-3.740)
[2021-04-28 15:41] LABS: *BILIRUBIN,URIN NEGATIVE (NEGATIVE); *BLOOD, URINE NEGATIVE (NEGATIVE); *CLARITY,URINE CLEAR (CLEAR); *COLOR,URINE YELLOW (YELLOW); *KETONES,URINE NEGATIVE (NEGATIVE); *UROBILINOGEN,URINE 0.2 E.U./dl (NORMAL); LEUKOCYTE ESTERASE ,URINE TRACE (NEGATIVE); NITRITE, URINE NEGATIVE (NEGATIVE); UGLUCOSE NEGATIVE (NEGATIVE)
[2021-04-28 15:51] LABS: *AMPHETAMINE, URINE NEGATIVE (NEGATIVE); *CANNABINOID, URINE NEGATIVE (NEGATIVE); *COCCAINE, URINE NEGATIVE (NEGATIVE); *OPIATE, URINE NEGATIVE (NEGATIVE); *PHENCYCLIDINE SCREEN,URINE NEGATIVE (NEGATIVE)
[2021-04-28] MEDS ORDERED: IV NORMAL SALINE 1000 ML BAG IV ONE (16:15)
--- NOTE | 2021-04-28 16:29 | NUR ---
Pt is not medically cleared to be admitted to MHU. Pt will be admitted to TELE.
[2021-04-28] MEDS ORDERED: LORAZEPAM 2 MG/1 ML VIAL ONE ×2 (16:46→20:20)
--- NOTE | 2021-04-28 16:51 | NUR ---
Dr Figueroa spoke to Dr Douglas for TELE admit.
[2021-04-28] MEDS ORDERED: LORAZEPAM 2 MG/1 ML VIAL IV ONE ×2 (17:15→19:15)
--- NOTE | 2021-04-28 19:20 | NUR ---
Pt pulled HL out from Rt hand. Placed a new HL on RT FA, #22.
[2021-04-28 20:35] VITALS: BP 127/87
[2021-04-28 20:48] LABS: BACTERIA,URINE NONE SEEN /HPF (NONE SEEN); RBC,URINE 0-3 /HPF (0-3); SQUAMOUS EPITHELIAL CELL,UR FEW /HPF (NONE SEEN); WBC,URINE 0-3 /HPF (0-3)
[2021-04-28] MEDS ORDERED: DIVA-76 PO (20:53)
--- NOTE | 2021-04-28 21:00 | NUR ---
RECEIVED PATIENT VIA GURNEY FROM ER. PATIENT IS A/O X1, CONFUSED. DENIES PAIN WHEN ASKED. NO S/S OF ANY PAIN OR DISCOMFORT. NO RESP. DISTRESS NOTED. VS WNL. PLACED ON TELE ORDERED, A-FIB. PATIENT IS VERY HYPER-SEXUAL, MAKING VERY INAPPROPRIATE GESTURES TOWARDS NURSES. H/L INTACT AND PATENT, NOTED TO RIGHT FA #22 GAUGE. PATIENT KEEPS SCRATCHING HIMSELF, SCRATCHES AND SMALL OPEN AREAS NOTED ALL OVER BODY. BED ALARM ON.L WILL CONTINUE TO MONITOR AND ASSESS.
[2021-04-28] MEDS ORDERED: INSULIN REGULAR, HUMAN 300 UNIT/3 ML VIAL SQ PRN (21:30)
[2021-04-28] MEDS ORDERED: DIVALPROEX 500 MG TABLET.DR PO SCH (21:30)
[2021-04-28] MEDS ORDERED: BISACODYL 10 MG SUPP.RECT RC PRN (21:30)
[2021-04-28] MEDS ORDERED: IV 1/2NS 1000 ML 1,000 ML IV PRN (21:30)
[2021-04-28] MEDS ORDERED: CLONIDINE HCL 0.1 MG TABLET PO PRN (21:30)
[2021-04-28] MEDS ORDERED: ACETAMINOPHEN 325 MG TABLET PO PRN (21:30)
[2021-04-28] MEDS ORDERED: DEXTROSE 50% 50 ML DISP.SYRIN IV PRN (21:30)
[2021-04-28] MEDS ORDERED: ACETAMINOPHEN 325 MG TABLET-SA PATIENTS-PAIN ONLY PO SCH (21:30)
[2021-04-29] VITALS: BP 122/81
[2021-04-29 04:00] VITALS: BP 149/91
--- NOTE | 2021-04-29 04:00 | NUR ---
PATIENT PULLED OFF TELE BOX AND IV SITE. VERY AGITATED WHEN APPROACHED AND VERY HYPER SEXUAL TOWARDS FEMALE STAFF. ALL NEEDS ATTENDED, WILL CONTINUE TO MONITOR AND ASSESS.
--- NOTE | 2021-04-29 06:10 | NUR ---
PATIENT ASLEEP IN BED. EASILY AROUSABLE. VERY HYPER-SEXUAL, MAKING VERY INAPPROPRIATE COMMENTS AND REMARKS. ON TELE A-FIB. PATIENT IS REFUSING FOR IV RE-INSERTION AT THIS TIME. WILL CONTINUE TO MONITOR AND ASSESS.
[2021-04-29] MEDS: BLOOD SUGAR DIAGNOSTIC 1 EACH STRIP VI SCH ×2 (06:17→12:21)
[2021-04-29 06:26] LABS: HEMATOCRIT 44.2 % (36.7-47.1); MEAN CORPUSCULAR HEMOGLOBIN 30.8 uug (23.8-33.4); MEAN CORPUSCULAR VOLUME 91.7 fL (73.0-96.2); PLATELET COUNT (AUTO) 108 K/uL (152-348)
[2021-04-29] MEDS ORDERED: PANTOPRAZOLE SODIUM 40 MG TABLET.DR PO SCH (07:00)
[2021-04-29 07:08] LABS: BILIRUBIN,TOTAL 0.5 mg/dL (0.2-1.0); CREATININE 1.2 mg/dL (0.6-1.3); MAGNESIUM 2.2 mg/dL (1.8-2.4); PHOSPHOROUS 3.1 mg/dL (2.5-4.9); POTASSIUM 4.1 mmol/L (3.5-5.1); TOTAL PROTEIN, SERUM 6.4 g/dL (6.4-8.2)
--- NOTE | 2021-04-29 07:20 | NUR ---
Received pt in bed awake easily arousable oriented x1 with some confusion and disorientation. Reoriented prn. No acute distress noted. Denies pain. Per endorsement pt removed iv line and refused to have another one reinserted. Patient stated not to reinsert at this time Safety and comfort provided. Call light in reach. Will cont to monitor.
[2021-04-29] MEDS ORDERED: BLOOD SUGAR DIAGNOSTIC 1 EACH STRIP VI SCH (07:30)
[2021-04-29] MEDS ORDERED: glipiZIDE 10 MG TABLET PO SCH (07:30)
[2021-04-29 08:00] LABS: THYROID STIMULATING HORMONE 4.798 mIU/mL (0.358-3.740)
[2021-04-29] MEDS ORDERED: FUROSEMIDE 20 MG TABLET PO SCH (09:00)
[2021-04-29] MEDS ORDERED: OLANZAPINE 5 MG TABLET PO SCH (09:00)
[2021-04-29] MEDS ORDERED: DIVALPROEX 250 MG TABLET.DR PO SCH (09:00)
[2021-04-29] MEDS ORDERED: SPIRONOLACTONE 25 MG TABLET PO SCH (09:00)
[2021-04-29] MEDS ORDERED: DILTIAZEM HCL CD 240 MG CAP.SR.24H PO SCH (09:00)
[2021-04-29] MEDS ORDERED: VENLAFAXINE XR 75 MG TAB.ER.24H PO SCH (09:00)
[2021-04-29] MEDS ORDERED: SERTRALINE HCL 100 MG TABLET PO SCH (09:00)
[2021-04-29] MEDS ORDERED: LACTULOSE 20 G/30 ML LIQUID UDC PO SCH (09:00)
[2021-04-29] MEDS ORDERED: CARVEDILOL 12.5 MG TABLET PO SCH (09:00)
--- NOTE | 2021-04-29 09:08 | NUR ---
patient keeps removing telemetry leads verbalized understanding of risks and benefits. put it on earlier but pt already removed one of the leads. will cont to encourage to comply.
--- NOTE | 2021-04-29 11:50 | NUR ---
able to insert 22g iv on right wrist with good backflow noted. resumed iv hydration as ordered. will cont to monitor.
[2021-04-29 11:52] VITALS: BP 122/83
--- NOTE | 2021-04-29 12:07 | NUR ---
pt getting up from the bed several times confused wanting to get dressed. reoriented the patient but he is confused and forgetful. assisted by 3 people back to bed. bed at lowest and locked siderails up. safety and comfort maintained. jamal givens legislative advocate rounding with new order noted.
[2021-04-29] MEDS ORDERED: ALBUTEROL SULFATE 2.5 MG/ 0.5 ML NEBU NEB PRN (12:15)
[2021-04-29] MEDS ORDERED: IPRATROPIUM BROMIDE 0.5 MG/2.5 ML NEBU NEB PRN (12:15)
[2021-04-29] MEDS ORDERED: diphenhydrAMINE 25 MG CAP PO PRN (12:45)
[2021-04-29] MEDS ORDERED: GLIP5TAB13 PO (13:57)
[2021-04-29] MEDS ORDERED: PANT40TA49 PO (13:57)
[2021-04-29] MEDS ORDERED: FURO20TA4 PO (13:57)
[2021-04-29] MEDS ORDERED: ALBU2.5V13 NEB (13:57)
[2021-04-29] MEDS ORDERED: IPRA0.2S6 NEB (13:57)
--- NOTE | 2021-04-29 14:28 | NUR ---
crisis team here and patient on 5150 hold for gravely disabled. pt cleared by hospitalist jamal givens and may discharge to snf once bed available. spoke to denisse at u he will be in room 139A.
--- NOTE | 2021-04-29 15:09 | NUR ---
patient removed iv line, pressure dressing applied.
--- NOTE | 2021-04-29 16:03 | NUR ---
transferred to mental health unit via gurney accompanied by senior web designer and nurse in stable condition. report given to denisse.
[2021-04-29] MEDS ORDERED: glipiZIDE 5 MG TABLET PO SCH (16:30)
[2021-04-29] MEDS ORDERED: ATORVASTATIN 20 MG TABLET PO SCH (21:00)
[2021-04-29] MEDS ORDERED: TRAZODONE 50 MG TABLET PO SCH (21:00)
[2021-04-29] MEDS ORDERED: GABAPENTIN 100 MG CAPSULE PO SCH (21:00)
[2021-04-29] MEDS ORDERED: DOXAZOSIN 2 MG TABLET PO SCH (21:00)
== END 2021-04-29 16:03 | DRG 682 ==
LOC: ER 13:37 → TELE3 20:31
PROVIDERS: ADMIT Internal Medicine; ATTEND Nurse Practitioner Acute Care
DX: N17.0 Acute kidney failure with tubular necrosis (principal); G92.9 Unspecified toxic encephalopathy; D68.59 Other primary thrombophilia; I13.0 Hypertensive heart and chronic kidney disease with heart failure and stage 1 through stage 4 chronic kidney disease, or unspecified chronic kidney disease; I50.32 Chronic diastolic (congestive) heart failure; Z68.41 Body mass index [BMI] 40.0-44.9, adult; E66.01 Morbid (severe) obesity due to excess calories; D69.59 Other secondary thrombocytopenia; E03.9 Hypothyroidism, unspecified; E78.5 Hyperlipidemia, unspecified; F03.90 Unspecified dementia, unspecified severity, without behavioral disturbance, psychotic disturbance, mood disturbance, and anxiety; F32.A Depression, unspecified; I48.91 Unspecified atrial fibrillation; J45.909 Unspecified asthma, uncomplicated; N40.0 Benign prostatic hyperplasia without lower urinary tract symptoms; Z20.822 Contact with and (suspected) exposure to COVID-19; Z74.09 Other reduced mobility; Z86.19 Personal history of other infectious and parasitic diseases; Z71.3 Dietary counseling and surveillance; K70.30 Alcoholic cirrhosis of liver without ascites; F10.10 Alcohol abuse, uncomplicated; I25.10 Atherosclerotic heart disease of native coronary artery without angina pectoris; Z79.84 Long term (current) use of oral hypoglycemic drugs; Z87.891 Personal history of nicotine dependence; F09 Unspecified mental disorder due to known physiological condition; E11.22 Type 2 diabetes mellitus with diabetic chronic kidney disease; Z79.4 Long term (current) use of insulin; Z85.05 Personal history of malignant neoplasm of liver
CPT/HCPCS: 36415; 71045; 83735; 84100; 84443; 84484; 85025; 85730; 87086; 93005; 97161; A4663; G0378; G0480; J1815; J2060; J3490; J7030; Q0163

== ENCOUNTER 2021-04-29 16:00 | Inpatient (IN) | payer MEDICARE, OTHER ==
[~2021-04-29] VITALS: Ht 172.7 cm; Wt 127.0 kg
[~2021-04-29 16:00] MED LIST changes: +ALBU2.5V13 NEB; -DEXT38GE12 PO; +DIVA-76 PO; +DIVA-78 PO; +FURO20TA4 PO; +GLIP5TAB13 PO; -GLUC1KIT IM; -HYDR453.3 TP; +INSU100C SQ; -INSU100V39 SQ; +IPRA0.2S6 NEB; -MAGN400O6 PO; -NA P133E RC; +OLAN5TAB70 PO; +ONDA4TAB5 PO; +PANT40TA49 PO; -RIFA550T PO; +SERT100T PO; -SITA50TA PO; +TRAZ-182 PO; -TRIA80OI2 TP; +VENL75CA62 PO
[2021-04-29] MEDS ORDERED: MAGNESIUM HYDROXIDE 30 ML LIQUID UDC PO PRN (17:15)
[2021-04-29] MEDS ORDERED: MAG HYDROX/AL HYDROX/SIMETH 30 ML LIQUID UDC PO PRN (17:15)
[2021-04-29] MEDS ORDERED: ACETAMINOPHEN 325 MG TABLET PO PRN (17:15)
[2021-04-29] MEDS ORDERED: BLOOD SUGAR DIAGNOSTIC 1 EACH STRIP VI ONE (17:45)
--- NOTE | 2021-04-29 18:44 | NUR ---
GPS: 75YO MALE PT ADMITTED TO MHU WITH THE CARE OF DR CORTES (PSYCHIATRIST) AND NICK LOMELI (HYDROELECTRIC POWERPLANT SUPERVISOR). PER CELENA (3RD FLR RN) REPORT PT HAVE ALTERED MENTAL STATUS AND ON 5150 HOLD DUE TO GRAVE DISABILITY DASTED TODAY 04/29/21 AT 1414. ALERT, ORIENTED X 1 (NAME). REDIRECTABLE SOMETIMES, CONFUSED AND FORGETFUL, HYPERSEXUAL. PER REPORT, PT REMOVED THE IV SITE. PT WITH DM WITH BS AT 1130 WAS 153 AND GIVEN 3 UNITS. ON CARDIAC AND DIABETIC DIET. PT WITH COMPLAINT OF ITCHY ALL OVER THE BODY AND BENADRYL PO Q6HR PRN WAS GIVEN AT 1315. FLU AND PNA VACCINE REFUSED PER REPORT. HERE PT IS CALM AND NO AGITATION NOTED. PT TRANSFERRED FROM BED TO LAURA-CHAIR WITH 2 PERSON MAX ASSIST. NICK LOMELI MADE AWARE OF PT ADMISSION AND ALSO REQUESTED FOR MED RECON AND TO PLACE AN ORDER FOR BREATHING TREATMENT AUDIBLE WHEEZING IS NOTED WITH PT. REFUSED INITIAL ACCUCHECK.
[2021-04-29] MEDS ORDERED: BISACODYL 10 MG SUPP.RECT RC PRN (18:45)
[2021-04-29] MEDS ORDERED: CLONIDINE HCL 0.1 MG TABLET PO PRN (18:45)
[2021-04-29 20:06] VITALS: BP 101/51
[2021-04-29] MEDS: GABAPENTIN 300 MG CAPSULE PO SCH (21:48)
[2021-04-29] MEDS: CARVEDILOL 12.5 MG TABLET PO SCH (21:48)
[2021-04-29] MEDS: ATORVASTATIN 20 MG TABLET PO SCH (21:49)
[2021-04-29] MEDS: DOXAZOSIN 2 MG TABLET PO SCH (21:52)
[2021-04-29] MEDS: CLONAZEPAM 0.5 MG TABLET PO PRN (21:53)
[2021-04-29] MEDS: TEMAZEPAM 7.5 MG CAPSULE PO PRN (23:15)
--- NOTE | 2021-04-30 06:10 | NUR ---
RECEIVED TO CARE, SITTING INN BED, DANGLING LEGS OFF THE SIDE, STRIPPING INTERMITTENTLY, BUT REDIRECTABLE. ORIENTED TO PERSON AND PLACE (A HOSPITAL). PRN ATIVAN AND RESTORIL WERE BOTH GIVEN, DUE TO INCREASED ANXIETY AND SEVERAL EPISODES OF STRIPPING. hE WAS GIVEN A BEDTIME SNACK, AND WATCHED TV. HE FINALLY WENT TO SLEEP AROUND 0200, AND WAS ASSISTED TO BED, AND HAS BEEN ASLEEP, EVER SINCE. OF NOW, HE APPEARS ASLEEP. NO DISTRESS NOTED.
[2021-04-30] MEDS: PANTOPRAZOLE SODIUM 40 MG TABLET.DR PO SCH (07:06)
[2021-04-30 07:30] VITALS: BP 111/69
[2021-04-30 07:30] LABS: ALANINE AMINOTRANSFERASE 28 U/L (16-63); ALKALINE PHOSPHATASE 70 U/L (50-136); ASPARTATE AMINOTRANSFERASE 15 U/L (15-37); BILIRUBIN,TOTAL 0.5 mg/dL (0.2-1.0); CARBON DIOXIDE 30 mmol/L (21-32); CHLORIDE 103 mmol/L (98-107); CREATININE 1.4 mg/dL (0.6-1.3); GLUCOSE 119 mg/dL (74-106); POTASSIUM 4.6 mmol/L (3.5-5.1); TOTAL PROTEIN, SERUM 6.8 g/dL (6.4-8.2); UREA NITROGEN, BLOOD 28 mg/dL (7-18)
[2021-04-30] MEDS: DILTIAZEM HCL CD 240 MG CAP.SR.24H PO SCH (08:46)
[2021-04-30] MEDS: FUROSEMIDE 20 MG TABLET PO SCH (08:46)
[2021-04-30] MEDS: LACTULOSE 20 G/30 ML LIQUID UDC PO SCH ×2 (08:46→16:08)
[2021-04-30] MEDS: SPIRONOLACTONE 25 MG TABLET PO SCH (08:46)
[2021-04-30] MEDS: CARVEDILOL 12.5 MG TABLET PO SCH ×2 (08:46→21:36)
[2021-04-30] MEDS: glipiZIDE 5 MG TABLET PO SCH ×2 (08:52→16:08)
[2021-04-30] MEDS ORDERED: Medication Not On Formulary EA (Lactulose (Duphalac) 30 ML) PO SCH (09:00)
[2021-04-30] MEDS ORDERED: glipiZIDE 10 MG TABLET PO SCH (09:00)
[2021-04-30] MEDS: OLANZAPINE 2.5 MG TABLET PO SCH ×2 (09:14→16:08)
[2021-04-30] MEDS: DIVALPROEX SPRINKLE 125 MG CAP.SPRINK PO SCH ×2 (09:14→21:35)
[2021-04-30] MEDS: SERTRALINE HCL 50 MG TABLET PO SCH ×2 (09:15→16:08)
--- NOTE | 2021-04-30 10:01 | NUR ---
GPS: PT COOPERATIVE WITH CARE AND COMPLIANT WITH MEDS, NO AGITATION NOTED AT THIS TIME. TRANSFERRED TO [facility] FOR BREAKFAST. ATE 100% BREAKFAST. DENIES ANY PAIN OR DISCOMFORT.
[2021-04-30 16:00] VITALS: BP 102/69
[2021-04-30] MEDS: CLONAZEPAM 0.5 MG TABLET PO PRN ×2 (16:08→20:51)
--- NOTE | 2021-04-30 16:59 | NUR ---
GPS: PT NOTED WITH 3 ROUND SHAPE RASHES ON LEFT ABDOMEN AND ONE ON RIGHT ABDOMEN. PT COMPLAINT ITCHY SOMETIMES. REPORTED TO NICK LOMELI NP. ORDERED CLOTRIMAZOLE OINTMENT TO APPLY ON AFFECTED AREAS. PHOTOS TAKEN.
[2021-04-30] MEDS: CLOTRIMAZOLE 1% CREAM 30 GM TUBE TOP SCH (17:53)
[2021-04-30 20:00] VITALS: BP 136/69
[2021-04-30] MEDS: GABAPENTIN 300 MG CAPSULE PO SCH (21:35)
[2021-04-30] MEDS: ATORVASTATIN 20 MG TABLET PO SCH (21:37)
[2021-04-30] MEDS: DOXAZOSIN 2 MG TABLET PO SCH (21:37)
[2021-04-30] MEDS: TEMAZEPAM 7.5 MG CAPSULE PO PRN (22:42)
--- NOTE | 2021-05-01 06:00 | NUR ---
Received to care, up in pola chair, cooperative with care, and medications. PRN Klonopin and Restoril were given at bedtime, and he slept all night. No distress, noted.
[2021-05-01] MEDS: PANTOPRAZOLE SODIUM 40 MG TABLET.DR PO SCH (06:58)
[2021-05-01 07:30] VITALS: BP 97/65
[2021-05-01] MEDS: FUROSEMIDE 20 MG TABLET PO SCH (09:00)
[2021-05-01] MEDS: CARVEDILOL 12.5 MG TABLET PO SCH ×2 (09:00→20:44)
[2021-05-01] MEDS: OLANZAPINE 2.5 MG TABLET PO SCH ×2 (09:00→17:58)
[2021-05-01] MEDS: glipiZIDE 5 MG TABLET PO SCH ×2 (09:00→17:58)
[2021-05-01] MEDS: DIVALPROEX SPRINKLE 125 MG CAP.SPRINK PO SCH ×2 (09:00→20:44)
[2021-05-01] MEDS: DILTIAZEM HCL CD 240 MG CAP.SR.24H PO SCH (09:00)
[2021-05-01] MEDS: SERTRALINE HCL 50 MG TABLET PO SCH ×2 (09:01→17:58)
[2021-05-01] MEDS: CLOTRIMAZOLE 1% CREAM 30 GM TUBE TOP SCH ×2 (09:02→17:58)
[2021-05-01] MEDS: LACTULOSE 20 G/30 ML LIQUID UDC PO SCH ×2 (09:02→17:58)
[2021-05-01] MEDS: SPIRONOLACTONE 25 MG TABLET PO SCH (09:03)
[2021-05-01] MEDS: CLONAZEPAM 0.5 MG TABLET PO PRN (14:21)
[2021-05-01 16:20] VITALS: BP 124/84
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
[2021-05-01 20:00] VITALS: BP 100/75
[2021-05-01] MEDS: GABAPENTIN 300 MG CAPSULE PO SCH (20:44)
[2021-05-01] MEDS: DOXAZOSIN 2 MG TABLET PO SCH (20:44)
[2021-05-01] MEDS: ATORVASTATIN 20 MG TABLET PO SCH (20:44)
[2021-05-02] MEDS: PANTOPRAZOLE SODIUM 40 MG TABLET.DR PO SCH (06:35)
[2021-05-02 07:32] VITALS: BP 101/70
[2021-05-02] MEDS: glipiZIDE 5 MG TABLET PO SCH ×2 (08:06→16:23)
[2021-05-02] MEDS: OLANZAPINE 2.5 MG TABLET PO SCH ×2 (08:07→16:23)
[2021-05-02] MEDS: SPIRONOLACTONE 25 MG TABLET PO SCH (08:07)
[2021-05-02] MEDS: DIVALPROEX SPRINKLE 125 MG CAP.SPRINK PO SCH ×2 (08:07→20:02)
[2021-05-02] MEDS: LACTULOSE 20 G/30 ML LIQUID UDC PO SCH ×2 (08:08→16:23)
[2021-05-02] MEDS: FUROSEMIDE 20 MG TABLET PO SCH (08:09)
[2021-05-02] MEDS: CLOTRIMAZOLE 1% CREAM 30 GM TUBE TOP SCH ×2 (08:09→16:24)
[2021-05-02] MEDS: CARVEDILOL 12.5 MG TABLET PO SCH ×2 (08:11→20:04)
[2021-05-02] MEDS: DILTIAZEM HCL CD 240 MG CAP.SR.24H PO SCH (08:11)
[2021-05-02] MEDS ORDERED: SERTRALINE HCL 50 MG TABLET PO SCH (09:00)
--- NOTE | 2021-05-02 11:04 | NUR ---
WOUND CARE CONSULT: PT PRESENTS WITH RESOLVING RED SPOTS TO ABDOMEN, PRESENT ON ADMISSION. LOTRIMIN CREAM IN USE. CONCUR WITH CURRENT TREATMENT. DISCUSSED SKIN PROTECTION WITH NURSING STAFF. MD IN AGREEMENT WITH PLAN OF CARE.
--- NOTE | 2021-05-02 11:15 | NUR ---
ELISSA Initial Discharge Note: Pt was admitted to [facility] from [facility] ([phone]). ELISSA spoke with Skylar in admissions who stated pt cannot return due to behavior that appears to be triggered by yelling patients. Skylar stated pt is accepted upon discharge to their sister facility, [facility] in [place]. Pao in admissions ([phone]) is aware of the pt's return upon discharge. ELISSA contacted pt's girlfriend, Trino ([phone]) and discussed the treatment plan. Trino is aware and agreeable with the discharge plan. Trino stated the pt is not in contact with his sons. ELISSA will continue to work with pt, family and MD to ensure a safe and proper discharge plan for the pt.
--- NOTE | 2021-05-02 11:16 | NUR ---
SW Admit Source: Pt was admitted to [facility] from [facility] ([phone]). ELISSA spoke with Skylar in admissions who stated pt cannot return due to behavior that appears to be triggered by yelling patients. Skylar stated pt is accepted upon discharge to their sister facility, [facility] in [place]. Pao in admissions ([phone]) is aware of the pt's return upon discharge. ELISSA contacted pt's girlfriend, Trino ([phone]) and discussed the treatment plan. Trino is aware and agreeable with the discharge plan. Trino stated the pt is not in contact with his sons. ELISSA will continue to work with pt, family and MD to ensure a safe and proper discharge plan for the pt.
--- NOTE | 2021-05-02 11:22 | NUR ---
Firearms Report: [employer] completed and submitted a DOJ firearms report for 5150 grave disability certifications. A copy of report has been placed in patient chart.
--- NOTE | 2021-05-02 15:07 | NUR ---
Gps/Sourcing Analyst- Patient go9t up from his pola-chair , noted patient standing and clingings to the wall, safety reviewed emphasized, claimed he needed to go to the bathroom, incontinent of soft BM , assisted with his hygiene. kept up in his pola-chair for safety.
[2021-05-02] MEDS: CLONAZEPAM 0.5 MG TABLET PO PRN ×2 (16:21→20:21)
[2021-05-02] MEDS: SERTRALINE HCL 50 MG TABLET PO SCH (16:23)
[2021-05-02 16:32] VITALS: BP 120/66
[2021-05-02 20:00] VITALS: BP 124/79
[2021-05-02] MEDS: ATORVASTATIN 20 MG TABLET PO SCH (20:01)
[2021-05-02] MEDS: GABAPENTIN 300 MG CAPSULE PO SCH (20:02)
[2021-05-02] MEDS: REMEDY ESSENTIAL ZINC PASTE 113 GM TOP SCH (20:02)
[2021-05-02] MEDS: DOXAZOSIN 2 MG TABLET PO SCH (20:04)
[2021-05-02] MEDS: TEMAZEPAM 7.5 MG CAPSULE PO PRN (21:18)
--- NOTE | 2021-05-03 06:07 | NUR ---
Patient remained stable during the shift. no distress identified. Turned and repositioned for perfusion. Kept call light within reach. Slept through the night. All due meds given. all needs attended. Safety measures maintained. Will endorse to the next shift for continuity of care
[2021-05-03] MEDS: PANTOPRAZOLE SODIUM 40 MG TABLET.DR PO SCH (06:33)
[2021-05-03] MEDS: glipiZIDE 5 MG TABLET PO SCH ×2 (06:33→16:03)
[2021-05-03 08:13] VITALS: BP 119/76
[2021-05-03] MEDS: OLANZAPINE 2.5 MG TABLET PO SCH ×2 (08:14→16:03)
[2021-05-03] MEDS: DIVALPROEX SPRINKLE 125 MG CAP.SPRINK PO SCH ×2 (08:14→20:04)
[2021-05-03] MEDS: LACTULOSE 20 G/30 ML LIQUID UDC PO SCH ×2 (08:14→16:03)
[2021-05-03] MEDS: DILTIAZEM HCL CD 240 MG CAP.SR.24H PO SCH (08:14)
[2021-05-03] MEDS: SPIRONOLACTONE 25 MG TABLET PO SCH (08:14)
[2021-05-03] MEDS: FUROSEMIDE 20 MG TABLET PO SCH (08:14)
[2021-05-03] MEDS: SERTRALINE HCL 50 MG TABLET PO SCH ×2 (08:14→16:03)
[2021-05-03] MEDS: CARVEDILOL 12.5 MG TABLET PO SCH ×2 (08:15→20:04)
[2021-05-03] MEDS: REMEDY ESSENTIAL ZINC PASTE 113 GM TOP SCH ×2 (08:16→20:05)
[2021-05-03] MEDS: CLOTRIMAZOLE 1% CREAM 30 GM TUBE TOP SCH ×2 (08:16→16:04)
[2021-05-03 16:49] VITALS: BP 122/68
[2021-05-03 20:00] VITALS: BP 146/83
[2021-05-03] MEDS: GABAPENTIN 300 MG CAPSULE PO SCH (20:04)
[2021-05-03] MEDS: ATORVASTATIN 20 MG TABLET PO SCH (20:04)
[2021-05-03] MEDS: DOXAZOSIN 2 MG TABLET PO SCH (20:05)
[2021-05-03] MEDS: TEMAZEPAM 7.5 MG CAPSULE PO PRN (23:31)
[2021-05-04] MEDS: PANTOPRAZOLE SODIUM 40 MG TABLET.DR PO SCH (06:00)
[2021-05-04] MEDS: ALBUTEROL SULFATE 2.5 MG/3 ML NEBU NEB PRN ×2 (06:05→12:16)
[2021-05-04] MEDS: IPRATROPIUM BROMIDE 0.5 MG/2.5 ML NEBU NEB PRN ×2 (06:05→12:16)
--- NOTE | 2021-05-04 06:15 | NUR ---
GPS: Remain calm and cooperative with meds and care. no agitation noted at this time. slept 7.30 hrs through the night. resting in pola chair for safety. continue plan of care.
[2021-05-04 07:44] VITALS: BP 128/75
[2021-05-04] MEDS: REMEDY ESSENTIAL ZINC PASTE 113 GM TOP SCH ×2 (08:04→20:27)
[2021-05-04] MEDS: LACTULOSE 20 G/30 ML LIQUID UDC PO SCH ×2 (08:04→16:16)
[2021-05-04] MEDS: SPIRONOLACTONE 25 MG TABLET PO SCH (08:05)
[2021-05-04] MEDS: CLOTRIMAZOLE 1% CREAM 30 GM TUBE TOP SCH ×2 (08:05→16:18)
[2021-05-04] MEDS: FUROSEMIDE 20 MG TABLET PO SCH (08:05)
[2021-05-04] MEDS: DILTIAZEM HCL CD 240 MG CAP.SR.24H PO SCH (08:05)
[2021-05-04] MEDS: CARVEDILOL 12.5 MG TABLET PO SCH ×2 (08:05→20:25)
[2021-05-04] MEDS: OLANZAPINE 2.5 MG TABLET PO SCH ×2 (08:05→16:17)
[2021-05-04] MEDS: DIVALPROEX SPRINKLE 125 MG CAP.SPRINK PO SCH ×2 (08:05→20:23)
[2021-05-04] MEDS: SERTRALINE HCL 50 MG TABLET PO SCH ×2 (08:05→16:17)
[2021-05-04] MEDS: glipiZIDE 5 MG TABLET PO SCH ×2 (08:05→16:17)
[2021-05-04 16:14] VITALS: BP 109/70
[2021-05-04 20:00] VITALS: BP 131/77
[2021-05-04] MEDS: DOXAZOSIN 2 MG TABLET PO SCH (20:23)
[2021-05-04] MEDS: ATORVASTATIN 20 MG TABLET PO SCH (20:23)
[2021-05-04] MEDS: GABAPENTIN 300 MG CAPSULE PO SCH (20:23)
[2021-05-04] MEDS: TEMAZEPAM 7.5 MG CAPSULE PO PRN (20:27)
[2021-05-05] MEDS: PANTOPRAZOLE SODIUM 40 MG TABLET.DR PO SCH (06:37)
--- NOTE | 2021-05-05 06:38 | NUR ---
GPS/NSG PATIENT REFUSED SHOWER LAST NIGHT AND THIS MORNING. ON APPROACH PATIENT MADE THREATS OF HITTING STAFF WHEN WE ATTEMPTED TO ENCOURAGE ADL'S. PRN FOR INSOMNIA ADMINISTERED ORDERED WITH EFFECTIVE OUTCOME.
[2021-05-05 07:40] VITALS: BP 119/71
[2021-05-05] MEDS: CARVEDILOL 12.5 MG TABLET PO SCH ×2 (09:00→20:26)
[2021-05-05] MEDS: SPIRONOLACTONE 25 MG TABLET PO SCH (09:07)
[2021-05-05] MEDS: DIVALPROEX SPRINKLE 125 MG CAP.SPRINK PO SCH ×2 (09:10→20:25)
[2021-05-05] MEDS: OLANZAPINE 2.5 MG TABLET PO SCH ×2 (09:10→16:47)
[2021-05-05] MEDS: glipiZIDE 5 MG TABLET PO SCH ×2 (09:10→16:44)
[2021-05-05] MEDS: SERTRALINE HCL 100 MG TABLET PO SCH (09:10)
[2021-05-05] MEDS: FUROSEMIDE 20 MG TABLET PO SCH (09:10)
[2021-05-05] MEDS: DILTIAZEM HCL CD 240 MG CAP.SR.24H PO SCH (09:11)
[2021-05-05] MEDS: LACTULOSE 20 G/30 ML LIQUID UDC PO SCH ×2 (09:12→16:47)
[2021-05-05] MEDS: CLOTRIMAZOLE 1% CREAM 30 GM TUBE TOP SCH ×2 (09:12→16:47)
[2021-05-05] MEDS: REMEDY ESSENTIAL ZINC PASTE 113 GM TOP SCH ×2 (09:13→20:34)
[2021-05-05 16:14] VITALS: BP 114/63
--- NOTE | 2021-05-05 16:21 | NUR ---
Received patient sleeping in his room. A/O X 2 to person, place. Pt. is calm, cooperative, redirectable. Compliant with medications. Denies SI/Hi AH/VH. Pt. ambulates with assistance of 2 people and device. Incontinent of bladder and bowel. Pt. is encourage to vent feelings. Fall and safety precautions implemented.
[2021-05-05 20:06] VITALS: BP 116/69
[2021-05-05] MEDS: GABAPENTIN 300 MG CAPSULE PO SCH (20:25)
[2021-05-05] MEDS: ATORVASTATIN 20 MG TABLET PO SCH (20:26)
[2021-05-05] MEDS: DOXAZOSIN 2 MG TABLET PO SCH (20:27)
[2021-05-05] MEDS: TEMAZEPAM 7.5 MG CAPSULE PO PRN (20:27)
[2021-05-06] MEDS: PANTOPRAZOLE SODIUM 40 MG TABLET.DR PO SCH (06:21)
[2021-05-06] MEDS: glipiZIDE 5 MG TABLET PO SCH ×2 (07:30→16:48)
[2021-05-06] MEDS: CARVEDILOL 12.5 MG TABLET PO SCH ×2 (09:00→21:00)
[2021-05-06] MEDS: REMEDY ESSENTIAL ZINC PASTE 113 GM TOP SCH ×2 (09:00→20:14)
[2021-05-06] MEDS: LACTULOSE 20 G/30 ML LIQUID UDC PO SCH ×2 (09:00→16:45)
[2021-05-06] MEDS: CLOTRIMAZOLE 1% CREAM 30 GM TUBE TOP SCH ×2 (09:00→16:45)
[2021-05-06] MEDS: DILTIAZEM HCL CD 240 MG CAP.SR.24H PO SCH (09:00)
[2021-05-06] MEDS: SERTRALINE HCL 100 MG TABLET PO SCH (09:00)
[2021-05-06] MEDS: FUROSEMIDE 20 MG TABLET PO SCH (09:00)
[2021-05-06] MEDS: DIVALPROEX SPRINKLE 125 MG CAP.SPRINK PO SCH ×2 (09:00→20:13)
[2021-05-06] MEDS: OLANZAPINE 2.5 MG TABLET PO SCH ×2 (09:00→16:45)
[2021-05-06] MEDS: SPIRONOLACTONE 25 MG TABLET PO SCH (09:00)
[2021-05-06 16:00] VITALS: BP 127/69
[2021-05-06 19:56] VITALS: BP 106/78
[2021-05-06] MEDS: GABAPENTIN 300 MG CAPSULE PO SCH (20:13)
[2021-05-06] MEDS: ATORVASTATIN 20 MG TABLET PO SCH (20:13)
--- NOTE | 2021-05-06 20:30 | NUR ---
Received patient in the hallway sitting in a rony chair and asking for snacks. he is notes A/O x 1. he is noted hyperverbal, hypersexual. however, he is able to be redirected. patient B/P is low (SBP 106) so all his QHS B/P medication were held. he is reassured for his safety. safety and fall precaution are in place. he was given PO fluids and snacks. will continue to monitor.
[2021-05-06] MEDS: DOXAZOSIN 2 MG TABLET PO SCH (21:00)
[2021-05-07] MEDS: TEMAZEPAM 7.5 MG CAPSULE PO PRN ×2 (01:00→22:45)
--- NOTE | 2021-05-07 01:00 | NUR ---
Patient noted awake, and trying to get out of bed. he is noted hyperverbal, hypersexual. he stated, "I can't sleep when I am hungry. patient was given Temazepam 7.5mg PO PRN for insomnia and one snacks. Patient was also given a reality checks. will continue to monitor.
[2021-05-07] MEDS: CLONAZEPAM 0.5 MG TABLET PO PRN ×2 (03:07→20:29)
[2021-05-07] MEDS: PANTOPRAZOLE SODIUM 40 MG TABLET.DR PO SCH (06:32)
[2021-05-07 07:30] VITALS: BP 127/70
[2021-05-07] MEDS: DILTIAZEM HCL CD 240 MG CAP.SR.24H PO SCH (08:30)
[2021-05-07] MEDS: LACTULOSE 20 G/30 ML LIQUID UDC PO SCH ×2 (08:30→19:03)
[2021-05-07] MEDS: glipiZIDE 5 MG TABLET PO SCH ×2 (08:30→19:03)
[2021-05-07] MEDS: DIVALPROEX SPRINKLE 125 MG CAP.SPRINK PO SCH ×2 (08:31→21:33)
[2021-05-07] MEDS: SERTRALINE HCL 100 MG TABLET PO SCH (08:31)
[2021-05-07] MEDS: CARVEDILOL 12.5 MG TABLET PO SCH ×2 (08:31→20:49)
[2021-05-07] MEDS: OLANZAPINE 5 MG TABLET PO SCH ×2 (08:31→19:03)
[2021-05-07] MEDS: SPIRONOLACTONE 25 MG TABLET PO SCH (08:31)
[2021-05-07] MEDS: FUROSEMIDE 20 MG TABLET PO SCH (08:31)
[2021-05-07] MEDS ORDERED: OLANZAPINE 2.5 MG TABLET PO SCH (09:00)
--- NOTE | 2021-05-07 09:44 | NUR ---
GPS: PT RECEIVED TODAY ON BED, ALERT AND VERBALLY RESPONSIVE. PT ANXIOUSLY YELLING STATING " I WANNA GO HOME" AND WANT TO GET OUT OF BED, GET DRESS. ASSISTED ROLLER SHOP UTILITY WORKER TO TRANSFER PT FROM BED TO LAURA-CHAIR AND COOPERATIVE WITH CHANGING DIAPER AND CLOTHES. NO AGITATION NOTED AT THIS TIME. COMPLIANT WITH MEDS.
[2021-05-07] MEDS: CLOTRIMAZOLE 1% CREAM 30 GM TUBE TOP SCH ×2 (10:04→19:04)
[2021-05-07] MEDS: REMEDY ESSENTIAL ZINC PASTE 113 GM TOP SCH ×2 (10:05→20:50)
[2021-05-07 16:00] VITALS: BP 107/78
[2021-05-07] MEDS: ATORVASTATIN 20 MG TABLET PO SCH (20:45)
[2021-05-07] MEDS: DOXAZOSIN 2 MG TABLET PO SCH (20:45)
[2021-05-07 20:48] VITALS: BP 118/70
[2021-05-07] MEDS: GABAPENTIN 300 MG CAPSULE PO SCH (20:49)
[2021-05-07] MEDS ORDERED: PAROXETINE HCL 20 MG TABLET PO SCH (21:00)
--- NOTE | 2021-05-08 04:45 | NUR ---
Received to care, up in pola chair, cooperative with care, and medications. PRN Klonopin and Restoril were given at bedtime, and he has slept all night. No distress, noted.
[2021-05-08] MEDS: PANTOPRAZOLE SODIUM 40 MG TABLET.DR PO SCH (06:15)
[2021-05-08 07:09] LABS: HEMATOCRIT 45.5 % (36.7-47.1); MEAN CORPUSCULAR HEMOGLOBIN 30.7 uug (23.8-33.4); MEAN CORPUSCULAR VOLUME 92.5 fL (73.0-96.2); PLATELET COUNT (AUTO) 117 K/uL (152-348)
[2021-05-08 07:30] VITALS: BP 115/54
[2021-05-08 08:00] LABS: ALANINE AMINOTRANSFERASE 62 U/L (16-63); ALKALINE PHOSPHATASE 83 U/L (50-136); ASPARTATE AMINOTRANSFERASE 31 U/L (15-37); BILIRUBIN,TOTAL 0.5 mg/dL (0.2-1.0); CARBON DIOXIDE 28 mmol/L (21-32); CHLORIDE 101 mmol/L (98-107); CREATININE 1.4 mg/dL (0.6-1.3); GLUCOSE 203 mg/dL (74-106); MAGNESIUM 2.2 mg/dL (1.8-2.4); POTASSIUM 4.4 mmol/L (3.5-5.1); TOTAL PROTEIN, SERUM 6.8 g/dL (6.4-8.2); UREA NITROGEN, BLOOD 34 mg/dL (7-18)
[2021-05-08 08:01] LABS: THYROID STIMULATING HORMONE 3.775 mIU/mL (0.358-3.740)
[2021-05-08] MEDS: FUROSEMIDE 20 MG TABLET PO SCH (08:04)
[2021-05-08] MEDS: DIVALPROEX SPRINKLE 125 MG CAP.SPRINK PO SCH ×2 (08:05→21:24)
[2021-05-08] MEDS: DILTIAZEM HCL CD 240 MG CAP.SR.24H PO SCH (08:05)
[2021-05-08] MEDS: OLANZAPINE 5 MG TABLET PO SCH ×2 (08:05→17:02)
[2021-05-08] MEDS: glipiZIDE 5 MG TABLET PO SCH ×2 (08:05→17:01)
[2021-05-08] MEDS: CARVEDILOL 12.5 MG TABLET PO SCH ×2 (08:05→20:30)
[2021-05-08] MEDS: LACTULOSE 20 G/30 ML LIQUID UDC PO SCH ×2 (08:05→17:02)
[2021-05-08] MEDS: SERTRALINE HCL 100 MG TABLET PO SCH (08:05)
[2021-05-08] MEDS: CLOTRIMAZOLE 1% CREAM 30 GM TUBE TOP SCH ×2 (08:06→17:02)
[2021-05-08] MEDS: SPIRONOLACTONE 25 MG TABLET PO SCH (08:06)
[2021-05-08] MEDS: REMEDY ESSENTIAL ZINC PASTE 113 GM TOP SCH ×2 (08:06→20:31)
[2021-05-08 08:58] LABS: CHOLESTEROL 103 mg/dL (<200); HDL CHOLESTEROL 40 mg/dL (40-60); TRIGLYCERIDES 104 MG/DL (30-150)
--- NOTE | 2021-05-08 09:02 | NUR ---
GPS: PT GOT UP FROM BED, ASSISTED WITH PUBLICATIONS EDITOR TRANSFER PT TO LAURA-CHAIR. PT COOPERATIVE WITH CARE. PLEASANT AND RELAXED. NO AGITATION OR ANXIOUSNESS NOTED. WILL MONITOR.
[2021-05-08 16:00] VITALS: BP 109/62
--- NOTE | 2021-05-08 17:49 | NUR ---
GPS: EPISODE OF ANXIETY NOTED PT COMPLAINING WANTS TO GET HIS WALLET TO PAY THINGS. RE-ORIENTED PT TO PLACE AND SITUATION. PT GOT REDIRECTED. EXPLAINED TO PT THAT HE WILL BE BACK TO BED AFTER DINNER. PT AGREED. DENIES ANY PAIN OR DISCOMFORT. COMPLIANT WITH MEDS.
[2021-05-08 20:00] VITALS: BP 124/57
[2021-05-08] MEDS: CLONAZEPAM 0.5 MG TABLET PO PRN (20:12)
[2021-05-08] MEDS: GABAPENTIN 300 MG CAPSULE PO SCH (20:29)
[2021-05-08] MEDS: DOXAZOSIN 2 MG TABLET PO SCH (20:30)
[2021-05-08] MEDS: ATORVASTATIN 20 MG TABLET PO SCH (20:31)
[2021-05-08] MEDS: ACETAMINOPHEN 325 MG TABLET PO PRN (22:06)
--- NOTE | 2021-05-09 06:13 | NUR ---
Received to care, up in pola chair, cooperative with care, and medications, but belligerent, and verbally hostile, at times. PRN Klonopin and Restoril were given at bedtime, and he has slept all night. No distress, noted.
[2021-05-09 07:44] VITALS: BP 105/53
[2021-05-09] MEDS: PANTOPRAZOLE SODIUM 40 MG TABLET.DR PO SCH (08:21)
[2021-05-09] MEDS: DIVALPROEX SPRINKLE 125 MG CAP.SPRINK PO SCH ×2 (08:21→23:04)
[2021-05-09] MEDS: glipiZIDE 5 MG TABLET PO SCH ×2 (08:21→16:07)
[2021-05-09] MEDS: SERTRALINE HCL 100 MG TABLET PO SCH (08:21)
[2021-05-09] MEDS: CARVEDILOL 12.5 MG TABLET PO SCH ×2 (08:26→23:04)
[2021-05-09] MEDS: CLOTRIMAZOLE 1% CREAM 30 GM TUBE TOP SCH ×2 (08:26→16:08)
[2021-05-09] MEDS: OLANZAPINE 5 MG TABLET PO SCH ×2 (08:26→16:07)
[2021-05-09] MEDS: LACTULOSE 20 G/30 ML LIQUID UDC PO SCH ×2 (08:26→16:07)
[2021-05-09] MEDS: SPIRONOLACTONE 25 MG TABLET PO SCH (08:27)
[2021-05-09] MEDS: DILTIAZEM HCL CD 240 MG CAP.SR.24H PO SCH (08:27)
[2021-05-09] MEDS: FUROSEMIDE 20 MG TABLET PO SCH (08:28)
[2021-05-09] MEDS: REMEDY ESSENTIAL ZINC PASTE 113 GM TOP SCH ×2 (09:52→22:00)
[2021-05-09] MEDS: CLONAZEPAM 0.5 MG TABLET PO PRN (12:50)
--- NOTE | 2021-05-09 15:30 | NUR ---
Gps/Lozenge Dough Mixer- Kept patient up in his pola-chair , gets angry and irritable , calling staff names when they will not get him out of his pola-chair, was confused, claimed he can walk around by himself , when tries to redirect and informed patient he cant walk ind. and needed assist. , gets upset , difficulty redirecting pt. , rude to staff cursing them
--- NOTE | 2021-05-09 16:03 | NUR ---
Gps/Ball Fringe Machine Operator- Patient extremely agitated, yelling , screaming out loud, difficulty redirecting patient, yelling help help, " stated. i dont belong here, i have a clean records, i want to get out of here, patient started to get aggressive towards the staff, security researcher was called to assist, Harpreet ENERGY TECHNICIAN was called by communications editor awaiting for return call.
[2021-05-09] MEDS ORDERED: HALOPERIDOL LACTATE 5 MG/1 ML VIAL IM ONE (16:15)
[2021-05-09] MEDS ORDERED: diphenhydrAMINE 50 MG/1 ML VIAL IM ONE (16:15)
[2021-05-09] MEDS ORDERED: LORAZEPAM 2 MG/1 ML VIAL IM ONE (16:15)
[2021-05-09 17:21] VITALS: BP 107/66
[2021-05-09 20:16] VITALS: BP 133/70
[2021-05-09] MEDS: DOXAZOSIN 2 MG TABLET PO SCH (23:04)
[2021-05-09] MEDS: ATORVASTATIN 20 MG TABLET PO SCH (23:05)
[2021-05-09] MEDS: GABAPENTIN 300 MG CAPSULE PO SCH (23:05)
[2021-05-09] MEDS: TEMAZEPAM 7.5 MG CAPSULE PO PRN (23:08)
[2021-05-10] MEDS: CLONAZEPAM 0.5 MG TABLET PO PRN ×2 (01:41→19:51)
[2021-05-10] MEDS: PANTOPRAZOLE SODIUM 40 MG TABLET.DR PO SCH (07:24)
[2021-05-10 07:30] VITALS: BP_SYST 138; BP_SYST 154; BP_DIAS 69; BP_DIAS 81
--- NOTE | 2021-05-10 07:30 | NUR ---
Slept most of night.compliant with meds. No aggression noted.
[2021-05-10] MEDS: DIVALPROEX SPRINKLE 125 MG CAP.SPRINK PO SCH ×2 (08:36→21:03)
[2021-05-10] MEDS: DILTIAZEM HCL CD 240 MG CAP.SR.24H PO SCH (08:37)
[2021-05-10] MEDS: FUROSEMIDE 20 MG TABLET PO SCH (08:37)
[2021-05-10] MEDS: OLANZAPINE 5 MG TABLET PO SCH ×2 (08:38→17:00)
[2021-05-10] MEDS: SPIRONOLACTONE 25 MG TABLET PO SCH (08:38)
[2021-05-10] MEDS: SERTRALINE HCL 100 MG TABLET PO SCH (08:38)
[2021-05-10] MEDS: LACTULOSE 20 G/30 ML LIQUID UDC PO SCH ×2 (08:39→17:00)
[2021-05-10] MEDS: CARVEDILOL 12.5 MG TABLET PO SCH ×2 (08:39→20:50)
[2021-05-10] MEDS: CLOTRIMAZOLE 1% CREAM 30 GM TUBE TOP SCH ×2 (08:40→17:00)
[2021-05-10] MEDS: REMEDY ESSENTIAL ZINC PASTE 113 GM TOP SCH ×2 (08:40→20:55)
[2021-05-10] MEDS: glipiZIDE 5 MG TABLET PO SCH ×2 (08:58→17:00)
--- NOTE | 2021-05-10 12:51 | NUR ---
Gps/Electronic Drafter- Patient was toileted, 2 staff assisting, had large BM, assisted with his hygiene. Taken to shower, , showered with max. assistance r/r patient difficulty standing up ,unable to stand up staring, patient very fearful of falling, reassured. Kept up in his pola-chair for safety, meds. compliant . Less yelling , and less calling out for needs.
[2021-05-10 16:00] VITALS: BP 97/64
--- NOTE | 2021-05-10 17:05 | NUR ---
Gps/Shank Archer- While CATARACT LENS GENERATOR taking his vital signs , patient told CATARACT LENS GENERATOR " why wont you let me touch your chi-chi" informed patient that was inappropriate behavior , patient just smile
--- NOTE | 2021-05-10 19:51 | NUR ---
nsg: patient is very agitated. yelling and screaming at staff. Klonopin 0.5 mg po given for agitation.
[2021-05-10 20:00] VITALS: BP 104/59
[2021-05-10] MEDS: DOXAZOSIN 2 MG TABLET PO SCH (20:49)
[2021-05-10] MEDS: ATORVASTATIN 20 MG TABLET PO SCH (21:03)
[2021-05-10] MEDS: GABAPENTIN 300 MG CAPSULE PO SCH (21:06)
[2021-05-10] MEDS: ALBUTEROL SULFATE 2.5 MG/3 ML NEBU NEB PRN (21:17)
[2021-05-10] MEDS: IPRATROPIUM BROMIDE 0.5 MG/2.5 ML NEBU NEB PRN (21:17)
[2021-05-10] MEDS: TEMAZEPAM 7.5 MG CAPSULE PO PRN (22:41)
[2021-05-11] MEDS: CLONAZEPAM 0.5 MG TABLET PO PRN ×2 (05:03→20:13)
[2021-05-11] MEDS: IPRATROPIUM BROMIDE 0.5 MG/2.5 ML NEBU NEB PRN ×2 (06:12→20:18)
[2021-05-11] MEDS: ALBUTEROL SULFATE 2.5 MG/3 ML NEBU NEB PRN ×2 (06:13→20:18)
[2021-05-11] MEDS: PANTOPRAZOLE SODIUM 40 MG TABLET.DR PO SCH (06:17)
--- NOTE | 2021-05-11 06:42 | NUR ---
GPS: Remain cooperative with meds and care. gets easily agitated. klonopin 0.5 mg po given twice a shift for agitation. slept 5 hrs after sleeping meds given. patient is belligerent, and verbally hostile, at times. No distress, noted.
[2021-05-11 08:10] VITALS: BP 114/82
[2021-05-11] MEDS: DIVALPROEX SPRINKLE 125 MG CAP.SPRINK PO SCH ×2 (08:52→21:24)
[2021-05-11] MEDS: CARVEDILOL 12.5 MG TABLET PO SCH ×2 (08:53→20:33)
[2021-05-11] MEDS: OLANZAPINE 5 MG TABLET PO SCH ×2 (08:53→16:57)
[2021-05-11] MEDS: LACTULOSE 20 G/30 ML LIQUID UDC PO SCH ×2 (08:53→16:57)
[2021-05-11] MEDS: DILTIAZEM HCL CD 240 MG CAP.SR.24H PO SCH (08:54)
[2021-05-11] MEDS: FUROSEMIDE 20 MG TABLET PO SCH (08:54)
[2021-05-11] MEDS: REMEDY ESSENTIAL ZINC PASTE 113 GM TOP SCH ×2 (08:54→20:36)
[2021-05-11] MEDS: SERTRALINE HCL 100 MG TABLET PO SCH (08:54)
[2021-05-11] MEDS: CLOTRIMAZOLE 1% CREAM 30 GM TUBE TOP SCH ×2 (08:58→16:57)
[2021-05-11] MEDS: SPIRONOLACTONE 25 MG TABLET PO SCH (08:58)
[2021-05-11] MEDS: glipiZIDE 5 MG TABLET PO SCH ×2 (09:00→16:57)
--- NOTE | 2021-05-11 13:00 | NUR ---
Gps/Microbiology Supervisor- Patient tried to get up from his pola-chair, noted incontinent of large mushy stools, needed total/max assist in his hygiene , cream applied as ordered, diaper on. , safety continue to emphasized, monitored safety.
--- NOTE | 2021-05-11 16:10 | NUR ---
Gps/Lap Cutter Truer Operator- Patient was yelling at the staff, calling them names, difficulty redirecting patient, poor safety , trying to up up from his pola-chair., threatening behavior , confused, disoriented, divemaster called PsychiatristHarpreet DNP was notified of patient's behavior, orders received.
[2021-05-11] MEDS ORDERED: HALOPERIDOL LACTATE 5 MG/1 ML VIAL IM ONE (16:30)
[2021-05-11] MEDS ORDERED: LORAZEPAM 2 MG/1 ML VIAL IM ONE (16:30)
[2021-05-11] MEDS ORDERED: diphenhydrAMINE 50 MG/1 ML VIAL IM ONE (16:30)
--- NOTE | 2021-05-11 16:48 | NUR ---
Gps/Laundry Sorter- Kept up in his pola-chair- lap tray on for safety, up by the Nurses Station for safety. Reoriented , fluids offered.
[2021-05-11 16:58] VITALS: BP 118/80
[2021-05-11 20:05] VITALS: BP 115/64
[2021-05-11] MEDS: GABAPENTIN 300 MG CAPSULE PO SCH (20:32)
[2021-05-11] MEDS: DOXAZOSIN 2 MG TABLET PO SCH (20:33)
[2021-05-11] MEDS: ATORVASTATIN 20 MG TABLET PO SCH (20:34)
[2021-05-11] MEDS: TEMAZEPAM 7.5 MG CAPSULE PO PRN (22:30)
[2021-05-12] MEDS: PANTOPRAZOLE SODIUM 40 MG TABLET.DR PO SCH (06:18)
--- NOTE | 2021-05-12 06:36 | NUR ---
Slept most of night.compliant with medications. PRN klonopin and restoril were given. No aggression noted.
[2021-05-12 07:59] VITALS: BP 108/68
[2021-05-12] MEDS: LACTULOSE 20 G/30 ML LIQUID UDC PO SCH ×2 (09:31→16:44)
[2021-05-12] MEDS: SERTRALINE HCL 100 MG TABLET PO SCH (09:31)
[2021-05-12] MEDS: OLANZAPINE 5 MG TABLET PO SCH ×2 (09:31→16:44)
[2021-05-12] MEDS: glipiZIDE 5 MG TABLET PO SCH ×2 (09:31→16:44)
[2021-05-12] MEDS: FUROSEMIDE 20 MG TABLET PO SCH (09:31)
[2021-05-12] MEDS: DIVALPROEX SPRINKLE 125 MG CAP.SPRINK PO SCH ×2 (09:31→21:14)
[2021-05-12] MEDS: SPIRONOLACTONE 25 MG TABLET PO SCH (09:31)
[2021-05-12] MEDS: DILTIAZEM HCL CD 240 MG CAP.SR.24H PO SCH (09:32)
[2021-05-12] MEDS: CARVEDILOL 12.5 MG TABLET PO SCH ×2 (09:32→20:27)
[2021-05-12] MEDS: REMEDY ESSENTIAL ZINC PASTE 113 GM TOP SCH ×2 (09:34→20:28)
[2021-05-12] MEDS: CLOTRIMAZOLE 1% CREAM 30 GM TUBE TOP SCH ×2 (09:34→16:44)
[2021-05-12] MEDS: CLONAZEPAM 0.5 MG TABLET PO PRN ×3 (11:18→20:27)
[2021-05-12] MEDS: IPRATROPIUM BROMIDE 0.5 MG/2.5 ML NEBU NEB PRN (11:55)
[2021-05-12] MEDS: ALBUTEROL SULFATE 2.5 MG/3 ML NEBU NEB PRN (11:55)
[2021-05-12 16:08] VITALS: BP 110/76
[2021-05-12] MEDS: ACETAMINOPHEN 325 MG TABLET PO PRN (16:44)
--- NOTE | 2021-05-12 18:42 | NUR ---
GPS: Nursing Notes: Destructive Behavior To Others: Patient is awake and responding to his name, labile, sundown behavior, paranoid thought process, believes that he is in prison, loud and pressured speech, resistant with nursing care, redirected and reoriented during shift, unkempt appearance, believes that he is leaving today, unable to formulate a viable plan for self care, forgetful, continue with treatment plan.
[2021-05-12 20:09] VITALS: BP 115/62
[2021-05-12] MEDS: GABAPENTIN 300 MG CAPSULE PO SCH (20:26)
[2021-05-12] MEDS: DOXAZOSIN 2 MG TABLET PO SCH (20:27)
[2021-05-12] MEDS: ATORVASTATIN 20 MG TABLET PO SCH (20:27)
[2021-05-12] MEDS: TEMAZEPAM 7.5 MG CAPSULE PO PRN (22:07)
--- NOTE | 2021-05-13 02:17 | NUR ---
VISUAL CHECKS AND ROUNDS MADE, PATIENT IS COMFORTABLY SLEEPING. WILL CONTINUE TO MONITOR.
--- NOTE | 2021-05-13 05:57 | NUR ---
Received to care, up in pola chair. compliant with meds. slept well all all night in bed. No aggressive behavior noted.
[2021-05-13] MEDS: PANTOPRAZOLE SODIUM 40 MG TABLET.DR PO SCH (06:00)
[2021-05-13 08:00] VITALS: BP 121/80
[2021-05-13] MEDS: CLONAZEPAM 0.5 MG TABLET PO PRN ×3 (08:12→20:05)
[2021-05-13] MEDS: glipiZIDE 5 MG TABLET PO SCH ×2 (08:12→16:51)
[2021-05-13] MEDS: DIVALPROEX SPRINKLE 125 MG CAP.SPRINK PO SCH ×2 (08:45→21:02)
[2021-05-13] MEDS: ACETAMINOPHEN 325 MG TABLET PO PRN ×2 (08:46→12:50)
[2021-05-13] MEDS: LACTULOSE 20 G/30 ML LIQUID UDC PO SCH ×2 (08:46→16:50)
[2021-05-13] MEDS: DILTIAZEM HCL CD 240 MG CAP.SR.24H PO SCH (08:46)
[2021-05-13] MEDS: SPIRONOLACTONE 25 MG TABLET PO SCH (08:46)
[2021-05-13] MEDS: OLANZAPINE 5 MG TABLET PO SCH ×2 (08:46→16:51)
[2021-05-13] MEDS: FUROSEMIDE 20 MG TABLET PO SCH (08:46)
[2021-05-13] MEDS: SERTRALINE HCL 100 MG TABLET PO SCH (08:46)
[2021-05-13] MEDS: CARVEDILOL 12.5 MG TABLET PO SCH ×2 (08:48→20:58)
[2021-05-13] MEDS: CLOTRIMAZOLE 1% CREAM 30 GM TUBE TOP SCH ×2 (08:49→16:51)
[2021-05-13] MEDS: REMEDY ESSENTIAL ZINC PASTE 113 GM TOP SCH ×2 (08:50→21:39)
--- NOTE | 2021-05-13 10:17 | NUR ---
ELISSA Family Contact: SW contacted pt's girlfriend Trino ([phone]) and left a voicemail for a call back regarding pt's discharge confirmation to [facility] upon discharge and stated this is the sister facility to [facility] where pt resided prior to admission to [facility].
--- NOTE | 2021-05-13 13:45 | NUR ---
GPS: Nursing Notes: Destructive Behavior To Others: Patient is awake and responding to his name, gets easily angry when redirected, paranoid behavior, believes that he in prison, episodes of shouting, stating "I did not break any laws... This is illegal..", reoriented and redirected during shift, but patient is forgetful, needs assistance with ADL's, sundown behavior, unable to formulate a viable plan for self care, continue with treatment plan.
[2021-05-13] MEDS: IPRATROPIUM BROMIDE 0.5 MG/2.5 ML NEBU NEB PRN ×2 (15:39→21:36)
[2021-05-13] MEDS: ALBUTEROL SULFATE 2.5 MG/3 ML NEBU NEB PRN ×2 (15:39→21:36)
[2021-05-13 16:45] VITALS: BP 95/56
[2021-05-13] MEDS ORDERED: OLANZAPINE 2.5 MG TABLET PO SCH (17:00)
[2021-05-13 20:05] VITALS: BP 116/83
[2021-05-13] MEDS: DOXAZOSIN 2 MG TABLET PO SCH (20:57)
[2021-05-13] MEDS: GABAPENTIN 300 MG CAPSULE PO SCH (20:58)
[2021-05-13] MEDS: ATORVASTATIN 20 MG TABLET PO SCH (20:58)
[2021-05-14] MEDS: TEMAZEPAM 7.5 MG CAPSULE PO PRN ×2 (01:04→23:22)
--- NOTE | 2021-05-14 06:27 | NUR ---
Received to care, up in pola chair, compliant with medications, but agitated, verbally abusive, labile, and difficult to redirect at times. He went to sleep around 2300, and has slept soundly most of the night. No distress noted. Will continue to monotor closely.
[2021-05-14] MEDS: PANTOPRAZOLE SODIUM 40 MG TABLET.DR PO SCH ×2 (06:34→07:00)
[2021-05-14 07:30] VITALS: BP 111/78
[2021-05-14] MEDS: DIVALPROEX SPRINKLE 125 MG CAP.SPRINK PO SCH ×2 (08:45→20:25)
[2021-05-14] MEDS: FUROSEMIDE 20 MG TABLET PO SCH (08:45)
[2021-05-14] MEDS: SPIRONOLACTONE 25 MG TABLET PO SCH (08:45)
[2021-05-14] MEDS: SERTRALINE HCL 100 MG TABLET PO SCH (08:46)
[2021-05-14] MEDS: OLANZAPINE 5 MG TABLET PO SCH ×2 (08:46→17:05)
[2021-05-14] MEDS: DILTIAZEM HCL CD 240 MG CAP.SR.24H PO SCH (08:47)
[2021-05-14] MEDS: CARVEDILOL 12.5 MG TABLET PO SCH ×2 (08:47→21:00)
[2021-05-14] MEDS: LACTULOSE 20 G/30 ML LIQUID UDC PO SCH ×2 (08:47→17:05)
[2021-05-14] MEDS: CLOTRIMAZOLE 1% CREAM 30 GM TUBE TOP SCH ×2 (08:49→17:05)
[2021-05-14] MEDS: REMEDY ESSENTIAL ZINC PASTE 113 GM TOP SCH ×2 (08:49→20:26)
[2021-05-14] MEDS: glipiZIDE 5 MG TABLET PO SCH ×2 (08:51→17:04)
[2021-05-14] MEDS ORDERED: OLANZAPINE 2.5 MG TABLET PO ONE (09:06)
--- NOTE | 2021-05-14 15:21 | NUR ---
Pt. is received sleeping in his room. A/O X 2 -3 to person, place. Pt. is demanding, needy, confused, agitated at times, forgetful, accusatory: "I have clean record to be locked up like animal, what have I done to you?" "Why am I here? I'm a good person". Pt. appearance is disheveled. Compliant with medications. Pt. lower body strength inadequate for safe mobility, pt. can only stand up with assistance of 3 staff preferably. Denies SI/HI AH/VH. Requires more than minimal assistance with ADL. Pt. had one large BM. Active listening provided. Fall and safety precautions implemented.
--- NOTE | 2021-05-14 15:50 | NUR ---
ELISSA Discharge Update Note: ELISSA contacted Pao in admissions at [facility] in [place] ([phone]) and left 2 voicemail for a call back to confirm the discharge plan for the pt on 05/16/21. Per Pao from patients admission, pt is accepted to their facility and only requested updated referral packet.
[2021-05-14 16:00] VITALS: BP 110/69
[2021-05-14 20:00] VITALS: BP 114/62
[2021-05-14] MEDS: GABAPENTIN 300 MG CAPSULE PO SCH (20:25)
[2021-05-14] MEDS: ATORVASTATIN 20 MG TABLET PO SCH (20:25)
[2021-05-14] MEDS: DOXAZOSIN 2 MG TABLET PO SCH (21:00)
--- NOTE | 2021-05-14 21:00 | NUR ---
Received patient in the hallway sitting in a rony chair near the nursing station for his safety. Patient noted A/O x 1. he is forgetful. his speech is disorganized, mood is irritable, affect is blunted. Patient requires constant reality checks and reassurance. she is reassures for his safety. safety and fall precaution are in place. V/S stable. He was given PO fluids and snacks. will continue to monitor,
[2021-05-15] MEDS: ALBUTEROL SULFATE 2.5 MG/3 ML NEBU NEB PRN ×2 (00:05→20:59)
[2021-05-15] MEDS: IPRATROPIUM BROMIDE 0.5 MG/2.5 ML NEBU NEB PRN ×2 (00:05→20:59)
[2021-05-15] MEDS: PANTOPRAZOLE SODIUM 40 MG TABLET.DR PO SCH (06:52)
[2021-05-15 07:30] VITALS: BP 102/66
[2021-05-15] MEDS: SERTRALINE HCL 100 MG TABLET PO SCH (09:34)
[2021-05-15] MEDS: DILTIAZEM HCL CD 240 MG CAP.SR.24H PO SCH (09:34)
[2021-05-15] MEDS: OLANZAPINE 5 MG TABLET PO SCH ×2 (09:34→16:10)
[2021-05-15] MEDS: DIVALPROEX SPRINKLE 125 MG CAP.SPRINK PO SCH ×2 (09:34→20:04)
[2021-05-15] MEDS: SPIRONOLACTONE 25 MG TABLET PO SCH (09:35)
[2021-05-15] MEDS: LACTULOSE 20 G/30 ML LIQUID UDC PO SCH ×2 (09:35→16:10)
[2021-05-15] MEDS: CARVEDILOL 12.5 MG TABLET PO SCH ×2 (09:36→21:00)
[2021-05-15] MEDS: FUROSEMIDE 20 MG TABLET PO SCH (09:36)
[2021-05-15] MEDS: REMEDY ESSENTIAL ZINC PASTE 113 GM TOP SCH ×2 (09:36→21:00)
[2021-05-15] MEDS: CLOTRIMAZOLE 1% CREAM 30 GM TUBE TOP SCH ×2 (09:37→16:10)
[2021-05-15] MEDS: glipiZIDE 5 MG TABLET PO SCH ×2 (09:38→16:09)
--- NOTE | 2021-05-15 09:39 | NUR ---
ELISSA Discharge Update: ELISSA contacted [facility] in [place] and left several voicemail for Pao in admissions ([phone]) regarding pt's discharge on 05/16/21. ELISSA also spoke with Skylar in admissions at [facility] ([phone]) where pt previously resided upon admission to [facility] and Skylar stated [facility] will accept pt back to their facility if pt cannot safely discharge to their sister facility, [facility]. Pt's girlfriend, Trino ([phone]) is aware and agreeable with the treatment plan.
[2021-05-15] MEDS: ACETAMINOPHEN 325 MG TABLET PO PRN (12:11)
[2021-05-15] MEDS: CLONAZEPAM 0.5 MG TABLET PO PRN ×2 (12:11→20:26)
--- NOTE | 2021-05-15 15:49 | NUR ---
Gps/Salesman/Owner- Alexus lombardis noted this pm for his needs, wanting to get out of his chair and walk around, informed he cants hardly stand up to get his balance,lower ext. are weak, unsteady , needed 2 staff to assist with his transfers and toileting confused, reoriented patient to time and place. very forgetful , constantly needing reorientation
[2021-05-15 16:00] VITALS: BP 102/72
--- NOTE | 2021-05-15 19:04 | NUR ---
Gps/Teacher Kindergarten- Covid antigen swab nares done
[2021-05-15 20:00] VITALS: BP 126/59
[2021-05-15] MEDS: GABAPENTIN 300 MG CAPSULE PO SCH (20:04)
[2021-05-15] MEDS: DOXAZOSIN 2 MG TABLET PO SCH (21:00)
[2021-05-15] MEDS: ATORVASTATIN 20 MG TABLET PO SCH (21:00)
[2021-05-15] MEDS: TEMAZEPAM 7.5 MG CAPSULE PO PRN (21:55)
[2021-05-16] MEDS: PANTOPRAZOLE SODIUM 40 MG TABLET.DR PO SCH (06:53)
[2021-05-16 07:30] VITALS: BP 119/66
[2021-05-16] MEDS: SERTRALINE HCL 100 MG TABLET PO SCH (08:24)
[2021-05-16] MEDS: DIVALPROEX SPRINKLE 125 MG CAP.SPRINK PO SCH (08:24)
[2021-05-16] MEDS: glipiZIDE 5 MG TABLET PO SCH (08:24)
[2021-05-16 08:25] VITALS: BP 119/66
[2021-05-16] MEDS: LACTULOSE 20 G/30 ML LIQUID UDC PO SCH (08:25)
[2021-05-16] MEDS: DILTIAZEM HCL CD 240 MG CAP.SR.24H PO SCH (08:25)
[2021-05-16] MEDS: SPIRONOLACTONE 25 MG TABLET PO SCH (08:25)
[2021-05-16] MEDS: CARVEDILOL 12.5 MG TABLET PO SCH (08:25)
[2021-05-16] MEDS: REMEDY ESSENTIAL ZINC PASTE 113 GM TOP SCH (08:26)
[2021-05-16] MEDS: OLANZAPINE 5 MG TABLET PO SCH (08:26)
[2021-05-16] MEDS: CLOTRIMAZOLE 1% CREAM 30 GM TUBE TOP SCH (08:26)
[2021-05-16] MEDS: FUROSEMIDE 20 MG TABLET PO SCH (08:27)
--- NOTE | 2021-05-16 08:56 | NUR ---
ELISSA Discharge Note: Pt will be discharged to [facility] [address] [facility] via Ambulance transportation at 11AM. ELISSA spoke with admin coordinator, Pao at the facility who states they are ready to accept the patient today. Pt is aware and agreeable with discharge plans. SW Pts girlfriend, Trino is aware and agreeable with the discharge plan. Pt is alert and oriented x1(name), is unable to plan for self-care at this time; however, is willing to accept care at SNF. Pt denies any suicidal or homicidal ideation. Pt will follow-up at the facility with Psychiatrist, Dr. White and Turbine Engine Assembler, Dr. Estrada. Pt presents with calm mood and congruent affect. PHARMACY: [facility] ([phone]) [address], [facility] [address].
--- NOTE | 2021-05-16 10:00 | NUR ---
Gps/Etcher Apprentice- called [facility] report was given to promotions assistant sales marketing Kierra ([phone]) Arranged apple picking supervisor time @ 1130 . All belongings given back to patient. No sign of any distress. Well informed of his discharge .
[2021-05-16] MEDS: CLONAZEPAM 0.5 MG TABLET PO PRN (10:48)
[2021-05-16] MEDS: ACETAMINOPHEN 325 MG TABLET PO PRN (10:48)
--- NOTE | 2021-05-16 12:51 | NUR ---
Gps/Chemical Process Equipment Operator- Ambulance in to hand picker patient. Patient was toileted, assisted with his hygiene, needing 2 staff to assist. Z-guard applied to buttock , skin intact, moist. Patient remains lots of assistance during his hygiene . safety emphasized. All belongings was given back to patient,no new complaints noted .
== END 2021-05-16 13:00 | DRG 881 ==
LOC: GPS 16:00
PROVIDERS: ADMIT Nurse Practitioner Psychiatric/Mental Health; ATTEND Nurse Practitioner Acute Care
DX: F32.9 Major depressive disorder, single episode, unspecified (principal); N17.9 Acute kidney failure, unspecified; N18.9 Chronic kidney disease, unspecified; Z68.41 Body mass index [BMI] 40.0-44.9, adult; I13.0 Hypertensive heart and chronic kidney disease with heart failure and stage 1 through stage 4 chronic kidney disease, or unspecified chronic kidney disease; D68.69 Other thrombophilia; F39 Unspecified mood [affective] disorder; E66.01 Morbid (severe) obesity due to excess calories; E11.22 Type 2 diabetes mellitus with diabetic chronic kidney disease; I50.9 Heart failure, unspecified; Z79.4 Long term (current) use of insulin; Z79.899 Other long term (current) drug therapy; D69.59 Other secondary thrombocytopenia; E03.8 Other specified hypothyroidism; E78.5 Hyperlipidemia, unspecified; F03.90 Unspecified dementia, unspecified severity, without behavioral disturbance, psychotic disturbance, mood disturbance, and anxiety; I48.91 Unspecified atrial fibrillation; Z85.05 Personal history of malignant neoplasm of liver; K70.30 Alcoholic cirrhosis of liver without ascites; Z73.6 Limitation of activities due to disability; F29 Unspecified psychosis not due to a substance or known physiological condition; R53.1 Weakness; Z86.19 Personal history of other infectious and parasitic diseases; R26.81 Unsteadiness on feet; Z20.822 Contact with and (suspected) exposure to COVID-19
CPT/HCPCS: 36415; 80164; 83735; 84100; 84443; 85025; 94640; 97161; J1200; J1630; J2060; J3590